=== PATIENT | male | born 1960 | race African-American/Black ===

== ENCOUNTER 2017-07-23 11:00 | Inpatient (IN) | payer OTHER ==
[2017-07-23 12:28] VITALS: BMI 22.4
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
[2017-07-23] MEDS ORDERED: P-EPHED 60MG/TRIPROLIDI 2.5MG TABLET PO PRN (14:54)
[2017-07-23] MEDS ORDERED: MAG HYDROX/AL HYDROX/SIMETH 30 ML UNIT-DOSE CUP PO PRN (14:54)
[2017-07-23] MEDS ORDERED: guaiFENesin/D-METHORPHAN HB 10 ML UNIT-DOSE CUPS PO PRN (14:54)
[2017-07-23] MEDS ORDERED: ACETAMINOPHEN 325 MG TABLET (FP) PO PRN (14:54)
[2017-07-23] MEDS ORDERED: MAGNESIUM CITRATE 300 ML BOTTLE PO PRN (14:54)
[2017-07-23] MEDS ORDERED: IBUPROFEN 400 MG TABLET (FP) PO PRN (14:54)
[2017-07-23] MEDS ORDERED: LOPERAMIDE HCL 2 MG CAPSULE PO PRN (14:54)
[2017-07-23] MEDS ORDERED: MAGNESIUM HYDROX 2400MG/30ML ORAL SUSPENSION 30 ML CUP PO PRN (14:54)
[2017-07-23] MEDS ORDERED: MENTHOL/PHENOL 1 EACH UD MM PRN (14:54)
[2017-07-23] MEDS ORDERED: hydrOXYzine PAMOATE 50 MG CAPSULE (FP) PO PRN (14:54)
[2017-07-23] MEDS ORDERED: METHADONE HCL 10 MG TABLET (FOR DETOX USE ONLY) PO ONE ×2 (15:30→23:00)
[2017-07-23] MEDS: diazePAM 5 MG TABLET PO PRN (15:56)
[2017-07-23] MEDS ORDERED: COLLOIDAL OATMEAL 1 BAR EACH TP PRN (16:49)
[2017-07-23 18:31] LABS: MCH 23.4 pg (25.7-33.7); MEAN CELL VOLUME 73.3 fl (80-96); MEAN PLT VOLUME 8.2 fl (7.5-11.1); PLATELET COUNT 197 K/MM3 (134-434); RDW 15.4 % (11.9-15.9); WHITE BLOOD COUNT 5.6 K/mm3 (4.0-10.0)
[2017-07-23 19:05] LABS: ALK PHOS 79 U/L (45-117); ANION GAP 8 (8-16); BILIRUBIN,TOTAL 0.5 mg/dL (0.2-1.0); CALCIUM 9.1 mg/dL (8.5-10.1); CO2 29 mmol/L (21-32); CREATININE 1.1 mg/dL (0.7-1.3); GLUCOSE,RANDOM 94 mg/dL (74-106); SGOT/AST 20 U/L (15-37); SGPT/ALT 25 U/L (12-78)
[2017-07-23] MEDS: THIAMINE HCL 100 MG TABLET (FP) PO SCH (22:45)
[2017-07-23] MEDS: diphenhydrAMINE HCL 50 MG CAPSULE PO PRN (22:46)
[2017-07-23 23:28] LABS: URINE APPEARANCE CLEAR; URINE BILIRUBIN NEGATIVE (NEGATIVE); URINE BLOOD NEGATIVE (NEGATIVE); URINE COLOR LT. YELLOW; URINE GLUCOSE (UA) NEGATIVE (NEGATIVE); URINE KETONE NEGATIVE (NEGATIVE); URINE NITRITE NEGATIVE (NEGATIVE); URINE PROTEIN NEGATIVE (NEGATIVE); URINE UROBILINOGEN 0.2 mg/dL (0.2-1.0)
[2017-07-24] MEDS ORDERED: METHADONE HCL 10 MG TABLET (FOR DETOX USE ONLY) PO ONE (10:00)
[2017-07-24] MEDS: PRENATAL VITAMINS W/ FOLIC ACID TABLET (FP) PO SCH (10:42)
[2017-07-24] MEDS: NICOTINE 21 MG/24 HOURS TOPICAL PATCH TD SCH (10:43)
[2017-07-24 12:37] LABS: HIV 1 & 2 AB NEGATIVE; HIV 1 AGp24 NEGATIVE
--- NOTE | 2017-07-24 13:12 | EKG ---
Test Reason : Blood Pressure : / mmHG Vent. Rate : 064 BPM Atrial Rate : 064 BPM P-R Int : 200 ms QRS Dur : 092 ms QT Int : 398 ms P-R-T Axes : 080 073 065 degrees QTc Int : 410 ms NORMAL SINUS RHYTHM BASELINE ARTIFACTS INCOMPLETE RBBB ATRIAL ABNORMALITY NO PREVIOUS ECGS AVAILABLE REPEAT EKG IF CLINICALLY INDICATED Confirmed by ADRIAN ZULETA MD ([id number]) on 07/24/2017 1:12:00 PM Referred By: Confirmed By:ADRIAN ZULETA MD
--- NOTE | 2017-07-24 13:36 | PN ---
BHS COWS - Scale Resting Pulse: 0= [place] 80 or Below Sweatin= Chills/Flushing Restless Observation: 1= Difficult to Sit Still Pupil Size: 0= Normal to Room Light Bone or Joint Aches: 2= Severe Diffuse Aches Runny Nose/ Eye Tearin= Runny Nose/Eyes GI Upset > 30mins: 1= Stomach Cramp Tremor Observation of Outstretched Hands: 2= Slight Tremor Visible Yawning Observation: 1= 1-2x During Session Anxiety or Irritability: 2=Irritable/Anxious Goose Flesh Skin: 3=Piloerection COWS Score: 15 BHS Progress Note (SOAP) Subjective: Tremors, Fatigue, Body Aches. Objective: PT. A & O X 2 9DISORIENTED ABOUT DAY /DATE). NO ACUTE DISTRESS. 07/24/17 13:33 Vital Signs Temperature 98.6 F 07/24/17 09:26 Pulse Rate 62 07/24/17 09:26 Respiratory Rate 18 07/24/17 09:26 Blood Pressure 146/90 07/24/17 09:26 O2 Sat by Pulse Oximetry (%) Laboratory Tests 07/23/17 07/23/17 07/23/17 14:00 14:00 14:00 WBC 5.6 RBC 5.16 Hgb 12.1 Hct 37.8 MCV 73.3 L MCH 23.4 L MCHC 32.0 RDW 15.4 Plt Count 197 MPV 8.2 Sodium 141 Potassium 4.2 Chloride 104 Carbon Dioxide 29 Anion Gap 8 BUN 10 Creatinine 1.1 Creat Clearance w eGFR > 60 Random Glucose 94 Calcium 9.1 Total Bilirubin 0.5 AST 20 ALT 25 Alkaline Phosphatase 79 Total Protein 7.0 Albumin 4.0 Urine Color Urine Appearance Urine pH Urine Protein Urine Glucose (UA) Urine Ketones Urine Blood Urine Nitrite Urine Bilirubin Urine Urobilinogen RPR Titer HIV 1&2 Antibody Screen Negative HIV P24 Antigen Negative 07/23/17 07/23/17 14:00 18:30 WBC RBC Hgb Hct MCV MCH MCHC RDW Plt Count MPV Sodium Potassium Chloride Carbon Dioxide Anion Gap BUN Creatinine Creat Clearance w eGFR Random Glucose Calcium Total Bilirubin AST ALT Alkaline Phosphatase Total Protein Albumin Urine Color Lt. yellow Urine Appearance Clear Urine pH 6.0 Urine Protein Negative Urine Glucose (UA) Negative Urine Ketones Negative Urine Blood Negative Urine Nitrite Negative Urine Bilirubin Negative Urine Urobilinogen 0.2 RPR Titer Nonreactive HIV 1&2 Antibody Screen HIV P24 Antigen LABS NOTED. Assessment: 07/24/17 13:34 WITHDRAWAL SYMPTOMS. Plan: CONTINUE DETOX. CONTINUE TO MONITOR BP.
[2017-07-24] MEDS: THIAMINE HCL 100 MG TABLET (FP) PO SCH (22:47)
[2017-07-24] MEDS: diphenhydrAMINE HCL 50 MG CAPSULE PO PRN (22:47)
[2017-07-25] MEDS: diazePAM 5 MG TABLET PO PRN (06:19)
[2017-07-25] MEDS ORDERED: METHADONE HCL 5 MG TABLET (FOR DETOX USE ONLY) PO ONE (10:00)
[2017-07-25] MEDS: NICOTINE 21 MG/24 HOURS TOPICAL PATCH TD SCH (11:19)
[2017-07-25] MEDS: PRENATAL VITAMINS W/ FOLIC ACID TABLET (FP) PO SCH (11:19)
--- NOTE | 2017-07-25 13:45 | PN ---
S COWS - Scale Resting Pulse: 0= [place] 80 or Below Sweatin= Chills/Flushing Restless Observation: 0= Sits Still Pupil Size: 0= Normal to Room Light Bone or Joint Aches: 2= Severe Diffuse Aches Runny Nose/ Eye Tearin= Runny Nose/Eyes GI Upset > 30mins: 1= Stomach Cramp Tremor Observation of Outstretched Hands: 2= Slight Tremor Visible Yawning Observation: 2= >3x During Session Anxiety or Irritability: 2=Irritable/Anxious Goose Flesh Skin: 0=Smooth Skin COWS Score: 12 S Progress Note (SOAP) Subjective: Nausea, Stomach Cramping, H/A, Body Aches, Sweating, Fatigue. Objective: PT. A & O X 2 (DISORIENTED ABOUT DAY / DATE). NO ACUTE DISTRESS. 07/25/17 13:43 Vital Signs Temperature 97.8 F 07/25/17 09:55 Pulse Rate 60 07/25/17 09:55 Respiratory Rate 18 07/25/17 09:55 Blood Pressure 126/84 07/25/17 09:55 O2 Sat by Pulse Oximetry (%) Laboratory Tests 07/23/17 07/23/17 07/23/17 14:00 14:00 14:00 WBC 5.6 RBC 5.16 Hgb 12.1 Hct 37.8 MCV 73.3 L MCH 23.4 L MCHC 32.0 RDW 15.4 Plt Count 197 MPV 8.2 Sodium 141 Potassium 4.2 Chloride 104 Carbon Dioxide 29 Anion Gap 8 BUN 10 Creatinine 1.1 Creat Clearance w eGFR > 60 Random Glucose 94 Calcium 9.1 Total Bilirubin 0.5 AST 20 ALT 25 Alkaline Phosphatase 79 Total Protein 7.0 Albumin 4.0 Urine Color Urine Appearance Urine pH Ur Specific [place] Urine Protein Urine Glucose (UA) Urine Ketones Urine Blood Urine Nitrite Urine Bilirubin Urine Urobilinogen RPR Titer HIV 1&2 Antibody Screen Negative HIV P24 Antigen Negative 07/23/17 07/23/17 14:00 18:30 WBC RBC Hgb Hct MCV MCH MCHC RDW Plt Count MPV Sodium Potassium Chloride Carbon Dioxide Anion Gap BUN Creatinine Creat Clearance w eGFR Random Glucose Calcium Total Bilirubin AST ALT Alkaline Phosphatase Total Protein Albumin Urine Color Lt. yellow Urine Appearance Clear Urine pH 6.0 Ur Specific [place] 1.020 Urine Protein Negative Urine Glucose (UA) Negative Urine Ketones Negative Urine Blood Negative Urine Nitrite Negative Urine Bilirubin Negative Urine Urobilinogen 0.2 RPR Titer Nonreactive HIV 1&2 Antibody Screen HIV P24 Antigen LABS NOTED. Assessment: 07/25/17 13:44 WITHDRAWAL SYMPTOMS. Plan: CONTINUE DETOX.
[2017-07-25] MEDS: diphenhydrAMINE HCL 50 MG CAPSULE PO PRN (22:36)
[2017-07-25] MEDS: THIAMINE HCL 100 MG TABLET (FP) PO SCH (22:51)
[2017-07-26] MEDS ORDERED: METHADONE HCL 5 MG TABLET (FOR DETOX USE ONLY) PO ONE (10:00)
[2017-07-26] MEDS: PRENATAL VITAMINS W/ FOLIC ACID TABLET (FP) PO SCH (10:35)
[2017-07-26] MEDS: NICOTINE 21 MG/24 HOURS TOPICAL PATCH TD SCH (10:36)
--- NOTE | 2017-07-26 14:02 | PN ---
BHS Progress Note (SOAP) Subjective: Body Aches, Stomach Cramping, Fatigue. Objective: PT. A & O X 3. NO ACUTE DISTRESS. 07/26/17 14:00 Vital Signs Temperature 97.8 F 07/26/17 10:27 Pulse Rate 63 07/26/17 10:27 Respiratory Rate 20 07/26/17 10:27 Blood Pressure 132/91 07/26/17 10:27 O2 Sat by Pulse Oximetry (%) Laboratory Tests 07/23/17 07/23/17 07/23/17 14:00 14:00 14:00 WBC 5.6 RBC 5.16 Hgb 12.1 Hct 37.8 MCV 73.3 L MCH 23.4 L MCHC 32.0 RDW 15.4 Plt Count 197 MPV 8.2 Sodium 141 Potassium 4.2 Chloride 104 Carbon Dioxide 29 Anion Gap 8 BUN 10 Creatinine 1.1 Creat Clearance w eGFR > 60 Random Glucose 94 Calcium 9.1 Total Bilirubin 0.5 AST 20 ALT 25 Alkaline Phosphatase 79 Total Protein 7.0 Albumin 4.0 Urine Color Urine Appearance Urine pH Ur Specific [place] Urine Protein Urine Glucose (UA) Urine Ketones Urine Blood Urine Nitrite Urine Bilirubin Urine Urobilinogen RPR Titer HIV 1&2 Antibody Screen Negative HIV P24 Antigen Negative 07/23/17 07/23/17 14:00 18:30 WBC RBC Hgb Hct MCV MCH MCHC RDW Plt Count MPV Sodium Potassium Chloride Carbon Dioxide Anion Gap BUN Creatinine Creat Clearance w eGFR Random Glucose Calcium Total Bilirubin AST ALT Alkaline Phosphatase Total Protein Albumin Urine Color Lt. yellow Urine Appearance Clear Urine pH 6.0 Ur Specific [place] 1.020 Urine Protein Negative Urine Glucose (UA) Negative Urine Ketones Negative Urine Blood Negative Urine Nitrite Negative Urine Bilirubin Negative Urine Urobilinogen 0.2 RPR Titer Nonreactive HIV 1&2 Antibody Screen HIV P24 Antigen LABS NOTED. Assessment: 07/26/17 14:01 WITHDRAWAL SYMPTOMS. Plan: CONTINUE DETOX.
[2017-07-26] MEDS: THIAMINE HCL 100 MG TABLET (FP) PO SCH (22:59)
[2017-07-26] MEDS: diphenhydrAMINE HCL 50 MG CAPSULE PO PRN (22:59)
[2017-07-27] MEDS ORDERED: METHADONE HCL 10 MG TABLET (FOR DETOX USE ONLY) PO ONE (10:00)
[2017-07-27] MEDS: NICOTINE 21 MG/24 HOURS TOPICAL PATCH TD SCH (10:32)
[2017-07-27] MEDS: PRENATAL VITAMINS W/ FOLIC ACID TABLET (FP) PO SCH (10:32)
--- NOTE | 2017-07-27 13:17 | PN ---
BHS Progress Note (SOAP) Subjective: Interrupted sleep, Diarrhea, Stomach cramping, Body Aches, Anxious, Tremors. Pt. reporting injury to right hand due to a fall that occurred just prior admission to Detox. Pt. reports that he did not go to ER for medical evaluation after fall. Objective: PT. A & O X 3, OBSERVED AMBULATING ON UNIT. NO ACUTE DISTRESS. 07/27/17 13:13 Vital Signs Temperature 98.7 F 07/27/17 11:24 Pulse Rate 70 07/27/17 11:24 Respiratory Rate 18 07/27/17 11:24 Blood Pressure 142/99 07/27/17 11:24 O2 Sat by Pulse Oximetry (%) Laboratory Tests 07/23/17 07/23/17 07/23/17 14:00 14:00 14:00 WBC 5.6 RBC 5.16 Hgb 12.1 Hct 37.8 MCV 73.3 L MCH 23.4 L MCHC 32.0 RDW 15.4 Plt Count 197 MPV 8.2 Sodium 141 Potassium 4.2 Chloride 104 Carbon Dioxide 29 Anion Gap 8 BUN 10 Creatinine 1.1 Creat Clearance w eGFR > 60 Random Glucose 94 Calcium 9.1 Total Bilirubin 0.5 AST 20 ALT 25 Alkaline Phosphatase 79 Total Protein 7.0 Albumin 4.0 Urine Color Urine Appearance Urine pH Ur Specific [place] Urine Protein Urine Glucose (UA) Urine Ketones Urine Blood Urine Nitrite Urine Bilirubin Urine Urobilinogen RPR Titer HIV 1&2 Antibody Screen Negative HIV P24 Antigen Negative 07/23/17 07/23/17 14:00 18:30 WBC RBC Hgb Hct MCV MCH MCHC RDW Plt Count MPV Sodium Potassium Chloride Carbon Dioxide Anion Gap BUN Creatinine Creat Clearance w eGFR Random Glucose Calcium Total Bilirubin AST ALT Alkaline Phosphatase Total Protein Albumin Urine Color Lt. yellow Urine Appearance Clear Urine pH 6.0 Ur Specific [place] 1.020 Urine Protein Negative Urine Glucose (UA) Negative Urine Ketones Negative Urine Blood Negative Urine Nitrite Negative Urine Bilirubin Negative Urine Urobilinogen 0.2 RPR Titer Nonreactive HIV 1&2 Antibody Screen HIV P24 Antigen LABS NOTED. Assessment: 07/27/17 13:15 WITHDRAWAL SYMPTOMS. Plan: CONTINUE DETOX. X-RAY OF RIGHT HAND ORDERED.
[2017-07-27 22:22] VITALS: BP 120/89; PULSE 56; TEMP 97.5
[2017-07-27] MEDS: THIAMINE HCL 100 MG TABLET (FP) PO SCH (23:05)
[2017-07-28] MEDS ORDERED: METHADONE HCL 5 MG TABLET (FOR DETOX USE ONLY) PO ONE ×2 (06:00→09:30)
--- NOTE | 2017-07-28 21:04 | DS ---
[facility] Detox Discharge Summary Admission Date: 07/23/17 Discharge Date: 07/28/17 - History Present History: Cocaine Dependence, Opioid Dependence Additional Comments: PT. EXPRESSING INTEREST IN GOING TO [facility] FOR AFTERCARE. HOWEVER, NO BEDS AVAILABLE IN [facility] AT THIS TIME. PT. ADVISED TO CALL [facility] ADMISSIONS ON 07/30/2017 TO INQUIRE ABOUT BED AVAILABILITY AT THAT TIME. PT. ALSO ADVISED TO FOLLOW-UP WITH LOCAL OUTPATIENT 12-STEP / NA SUPPORT GROUP PROGRAM FOR AFTER CARE. PATIENT ALSO ADVISED TO FOLLOW-UP WITH [employer]ET NEWS REPORTER AT [facility] ([facility]) FOR MEDICAL ASSESSMENT AND FOR HISTORY OF INJURY/FRACTURE OF METACARPAL BONE OF RIGHT HAND. PATIENT WAS DISCHARGED FROM DETOX UNIT IN STABLE MEDICAL CONDITION. Pertinent Past History: Nicotine dependence, Fracture of Metacarpal Bone of Right Hand. - Physical Exam Results Vital Signs: Vital Signs Temperature 97.5 F L 07/27/17 22:21 Pulse Rate 56 L 07/27/17 22:21 Respiratory Rate 18 07/28/17 03:47 Blood Pressure 120/89 07/27/17 22:21 O2 Sat by Pulse Oximetry (%) Pertinent Admission Physical Exam Findings: WITHDRAWAL SYMPTOMS. Laboratory Tests 07/23/17 07/23/17 07/23/17 14:00 14:00 14:00 WBC 5.6 RBC 5.16 Hgb 12.1 Hct 37.8 MCV 73.3 L MCH 23.4 L MCHC 32.0 RDW 15.4 Plt Count 197 MPV 8.2 Sodium 141 Potassium 4.2 Chloride 104 Carbon Dioxide 29 Anion Gap 8 BUN 10 Creatinine 1.1 Creat Clearance w eGFR > 60 Random Glucose 94 Calcium 9.1 Total Bilirubin 0.5 AST 20 ALT 25 Alkaline Phosphatase 79 Total Protein 7.0 Albumin 4.0 Urine Color Urine Appearance Urine pH Ur Specific [place] Urine Protein Urine Glucose (UA) Urine Ketones Urine Blood Urine Nitrite Urine Bilirubin Urine Urobilinogen RPR Titer HIV 1&2 Antibody Screen Negative HIV P24 Antigen Negative 07/23/17 07/23/17 14:00 18:30 WBC RBC Hgb Hct MCV MCH MCHC RDW Plt Count MPV Sodium Potassium Chloride Carbon Dioxide Anion Gap BUN Creatinine Creat Clearance w eGFR Random Glucose Calcium Total Bilirubin AST ALT Alkaline Phosphatase Total Protein Albumin Urine Color Lt. yellow Urine Appearance Clear Urine pH 6.0 Ur Specific [place] 1.020 Urine Protein Negative Urine Glucose (UA) Negative Urine Ketones Negative Urine Blood Negative Urine Nitrite Negative Urine Bilirubin Negative Urine Urobilinogen 0.2 RPR Titer Nonreactive HIV 1&2 Antibody Screen HIV P24 Antigen LABS NOTED. - Treatment Hospital Course: Detox Protocol Followed, Detoxed Safely, Responded well, Discharged Condition Good, Rehab Referral Accepted Patient has Accepted a Rehab Referral to: [facility]. - Medication Discharge Medications: Ambulatory Orders NK [No Known Home Medication] 07/23/17 - Diagnosis (1) Fracture of metacarpal Status: Acute Qualifiers: Encounter type: initial encounter Metacarpal bone: fifth Fracture type: closed Metacarpal location: base Fracture alignment: nondisplaced Laterality: right Qualified Code(s): S62.346A - Nondisplaced fracture of base of fifth metacarpal bone, right hand, initial encounter for closed fracture (2) Cocaine dependence, uncomplicated Status: Chronic (3) Nicotine dependence Status: Chronic Qualifiers: Nicotine product type: cigarettes Substance use status: uncomplicated Qualified Code(s): F17.210 - Nicotine dependence, cigarettes, uncomplicated (4) Opioid dependence with withdrawal Status: Acute - AMA Did Patient Leave Against Medical Advice: No
== END 2017-07-28 09:45 | disposition home or self-care (01) | DRG 773 ==
LOC: YASAS 11:00 → Y3N 14:12
PROVIDERS: ADMIT Internal Medicine; ATTEND Internal Medicine
PROC: HZ2ZZZZ Detoxification Services for Substance Abuse Treatment (ICD-10-PCS; principal; 2017-07-23)
DX: F11.23 Opioid dependence with withdrawal (principal); F14.20 Cocaine dependence, uncomplicated; F17.210 Nicotine dependence, cigarettes, uncomplicated; S62.346A Nondisplaced fracture of base of fifth metacarpal bone, right hand, initial encounter for closed fracture; X58.XXXA Exposure to other specified factors, initial encounter; Y93.89 Activity, other specified; Y92.89 Other specified places as the place of occurrence of the external cause; Y99.8 Other external cause status
CPT/HCPCS: 36415; 71020-TC; 80053; 81003; 85027; 86593; 87389; 93005; 93010

== ENCOUNTER 2017-07-27 16:27 | Emergency (ER) | payer OTHER ==
[2017-07-27 16:38] VITALS: BP 123/96; PULSE 60; TEMP 98.2; BMI 22.8
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
== END 2017-07-27 19:20 | disposition other institution (70) ==
LOC: JER 16:27
PROC: 2W3CX1Z Immobilization of Right Lower Arm using Splint (ICD-10-PCS; principal; 2017-07-27)
DX: S62.346A Nondisplaced fracture of base of fifth metacarpal bone, right hand, initial encounter for closed fracture (principal); W19.XXXA Unspecified fall, initial encounter; Y93.89 Activity, other specified; Y92.89 Other specified places as the place of occurrence of the external cause; Y99.8 Other external cause status
CPT/HCPCS: 29125; 73130-TC-RT; 99281-25

== ENCOUNTER 2017-08-26 12:13 | Inpatient (IN) | payer OTHER ==
[2017-08-26 12:56] VITALS: BMI 22.8
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
[2017-08-26] MEDS ORDERED: MAGNESIUM CITRATE 300 ML BOTTLE PO PRN (15:26)
[2017-08-26] MEDS ORDERED: MAG HYDROX/AL HYDROX/SIMETH 30 ML UNIT-DOSE CUP PO PRN (15:26)
[2017-08-26] MEDS ORDERED: hydrOXYzine PAMOATE 50 MG CAPSULE (FP) PO PRN (15:26)
[2017-08-26] MEDS ORDERED: METHADONE HCL 10 MG TABLET (FOR DETOX USE ONLY) PO ONE ×2 (15:26→23:00)
[2017-08-26] MEDS ORDERED: guaiFENesin/D-METHORPHAN HB 10 ML UNIT-DOSE CUPS PO PRN (15:26)
[2017-08-26] MEDS ORDERED: P-EPHED 60MG/TRIPROLIDI 2.5MG TABLET PO PRN (15:26)
[2017-08-26] MEDS ORDERED: MENTHOL/PHENOL 1 EACH UD MM PRN (15:26)
[2017-08-26] MEDS ORDERED: ACETAMINOPHEN 325 MG TABLET (FP) PO PRN (15:26)
[2017-08-26] MEDS ORDERED: IBUPROFEN 400 MG TABLET (FP) PO PRN ×2 (15:26→15:35)
[2017-08-26] MEDS ORDERED: MAGNESIUM HYDROX 2400MG/30ML ORAL SUSPENSION 30 ML CUP PO PRN (15:26)
[2017-08-26] MEDS ORDERED: LOPERAMIDE HCL 2 MG CAPSULE PO PRN (15:26)
[2017-08-26 17:38] LABS: URINE APPEARANCE CLEAR; URINE BILIRUBIN NEGATIVE (NEGATIVE); URINE BLOOD NEGATIVE (NEGATIVE); URINE COLOR LTYELLOW; URINE GLUCOSE (UA) NEGATIVE (NEGATIVE); URINE KETONE NEGATIVE (NEGATIVE); URINE NITRITE NEGATIVE (NEGATIVE); URINE PROTEIN NEGATIVE (NEGATIVE); URINE UROBILINOGEN NEGATIVE mg/dL (0.2-1.0)
[2017-08-26] MEDS ORDERED: METHADONE HCL 10 MG TABLET (FOR DETOX USE ONLY) ONE (17:40)
[2017-08-26] MEDS: diazePAM 5 MG TABLET PO PRN ×2 (17:46→22:10)
[2017-08-26 20:18] LABS: URINE LEUK ESTERASE Negative (NEGATIVE)
[2017-08-26] MEDS: THIAMINE HCL 100 MG TABLET (FP) PO SCH (22:10)
[2017-08-26] MEDS: diphenhydrAMINE HCL 50 MG CAPSULE PO PRN (22:11)
[2017-08-27 09:47] LABS: MCH 22.6 pg (25.7-33.7); MEAN PLT VOLUME 8.3 fl (7.5-11.1); PLATELET COUNT 185 K/MM3 (134-434); RDW 15.3 % (11.9-15.9); WHITE BLOOD COUNT 4.8 K/mm3 (4.0-10.0)
[2017-08-27] MEDS ORDERED: METHADONE HCL 10 MG TABLET (FOR DETOX USE ONLY) PO ONE (10:00)
[2017-08-27 10:05] LABS: ALBUMIN 3.3 g/dl (3.4-5.0); ALK PHOS 78 U/L (45-117); ANION GAP 7 (8-16); BILIRUBIN,TOTAL 0.3 mg/dL (0.2-1.0); CO2 29 mmol/L (21-32); GLUCOSE,RANDOM 115 mg/dL (74-106); SGOT/AST 16 U/L (15-37); SGPT/ALT 19 U/L (12-78); TOT PROT 6.4 g/dl (6.4-8.2)
[2017-08-27] MEDS: PRENATAL VITAMINS W/ FOLIC ACID TABLET (FP) PO SCH (10:08)
[2017-08-27] MEDS: NICOTINE 21 MG/24 HOURS TOPICAL PATCH TD SCH (10:08)
[2017-08-27 10:42] LABS: HIV 1 & 2 AB NEGATIVE; HIV 1 AGp24 NEGATIVE
--- NOTE | 2017-08-27 11:35 | PN ---
S COWS - Scale Resting Pulse: 0= [place] 80 or Below Sweatin= Chills/Flushing Restless Observation: 1= Difficult to Sit Still Pupil Size: 0= Normal to Room Light Bone or Joint Aches: 2= Severe Diffuse Aches Runny Nose/ Eye Tearin= Nasal Congestion GI Upset > 30mins: 1= Stomach Cramp Tremor Observation of Outstretched Hands: 2= Slight Tremor Visible Yawning Observation: 1= 1-2x During Session Anxiety or Irritability: 2=Irritable/Anxious Goose Flesh Skin: 3=Piloerection COWS Score: 14 S Progress Note (SOAP) Subjective: Body Aches, Sweating, Tremors. Objective: PT. A & O X 3, OBSERVED AMBULATING ON UNIT. NO ACUTE DISTRESS. PT. DENIES CHEST PAIN. 08/27/17 11:36 Vital Signs Temperature 97.0 F L 08/27/17 09:44 Pulse Rate 61 08/27/17 09:44 Respiratory Rate 20 08/27/17 09:44 Blood Pressure 148/92 08/27/17 09:44 O2 Sat by Pulse Oximetry (%) Laboratory Tests 08/26/17 08/27/17 08/27/17 17:19 07:00 07:00 WBC 4.8 RBC 5.49 Hgb 12.4 Hct 40.1 MCV 73.0 L MCH 22.6 L MCHC 31.0 L RDW 15.3 Plt Count 185 MPV 8.3 Sodium Potassium Chloride Carbon Dioxide Anion Gap BUN Creatinine Creat Clearance w eGFR Random Glucose Calcium Total Bilirubin AST ALT Alkaline Phosphatase Total Protein Albumin Urine Color Ltyellow Urine Appearance Clear Urine pH 8.0 D Ur Specific [place] 1.015 Urine Protein Negative Urine Glucose (UA) Negative Urine Ketones Negative Urine Blood Negative Urine Nitrite Negative Urine Bilirubin Negative Urine Urobilinogen Negative Ur Leukocyte Esterase Negative RPR Titer HIV 1&2 Antibody Screen Negative HIV P24 Antigen Negative 08/27/17 08/27/17 07:00 07:00 WBC RBC Hgb Hct MCV MCH MCHC RDW Plt Count MPV Sodium 141 Potassium 4.3 Chloride 105 Carbon Dioxide 29 Anion Gap 7 L BUN 11 Creatinine 1.0 Creat Clearance w eGFR > 60 Random Glucose 115 H D Calcium 9.0 Total Bilirubin 0.3 D AST 16 ALT 19 D Alkaline Phosphatase 78 Total Protein 6.4 Albumin 3.3 L Urine Color Urine Appearance Urine pH Ur Specific [place] Urine Protein Urine Glucose (UA) Urine Ketones Urine Blood Urine Nitrite Urine Bilirubin Urine Urobilinogen Ur Leukocyte Esterase RPR Titer Nonreactive HIV 1&2 Antibody Screen HIV P24 Antigen LABS NOTED. Assessment: 08/27/17 11:37 WITHDRAWAL SYMPTOMS. Plan: CONTINUE DETOX.
[2017-08-27] MEDS ORDERED: FLU VACCINE QUAD 60 MCG/0.5 ML (MDV 17-18) IM ONE (12:00)
[2017-08-27] MEDS: THIAMINE HCL 100 MG TABLET (FP) PO SCH (22:04)
[2017-08-27] MEDS: diazePAM 5 MG TABLET PO PRN (22:05)
[2017-08-27] MEDS: diphenhydrAMINE HCL 50 MG CAPSULE PO PRN (22:05)
--- NOTE | 2017-08-28 07:23 | EKG ---
Test Reason : Blood Pressure : / mmHG Vent. Rate : 053 BPM Atrial Rate : 053 BPM P-R Int : 204 ms QRS Dur : 098 ms QT Int : 400 ms P-R-T Axes : 081 069 065 degrees QTc Int : 375 ms SINUS BRADYCARDIA INCOMPLETE RIGHT BUNDLE BRANCH BLOCK BORDERLINE ECG WHEN COMPARED WITH ECG OF 23-JUL-2017 15:52, NO SIGNIFICANT CHANGE WAS FOUND Confirmed by EDISON WILKINSON MD ([id number]) on 08/28/2017 7:22:43 AM Referred By: Confirmed By:EDISON WILKINSON MD
[2017-08-28] MEDS ORDERED: METHADONE HCL 5 MG TABLET (FOR DETOX USE ONLY) PO ONE (10:00)
[2017-08-28] MEDS: PRENATAL VITAMINS W/ FOLIC ACID TABLET (FP) PO SCH (10:09)
[2017-08-28] MEDS: NICOTINE 21 MG/24 HOURS TOPICAL PATCH TD SCH (10:10)
[2017-08-28] MEDS: diazePAM 5 MG TABLET PO PRN ×2 (10:10→22:12)
--- NOTE | 2017-08-28 12:25 | PN ---
BHS COWS - Scale Resting Pulse: 0= [place] 80 or Below Sweatin= Chills/Flushing Restless Observation: 1= Difficult to Sit Still Pupil Size: 0= Normal to Room Light Bone or Joint Aches: 2= Severe Diffuse Aches Runny Nose/ Eye Tearin= Nasal Congestion GI Upset > 30mins: 1= Stomach Cramp Tremor Observation of Outstretched Hands: 2= Slight Tremor Visible Yawning Observation: 2= >3x During Session Anxiety or Irritability: 1=Feels Anxious/Irritable Goose Flesh Skin: 3=Piloerection COWS Score: 14 BHS Progress Note (SOAP) Subjective: Tremors,m Stomach Cramping, Fatigue, Body Aches. Objective: PT. A & O X 3, OBSERVED AMBULATING ON UNIT. NO ACUTE DISTRESS. 08/28/17 12:25 Vital Signs Temperature 98.7 F 08/28/17 09:40 Pulse Rate 67 08/28/17 09:40 Respiratory Rate 18 08/28/17 09:40 Blood Pressure 139/89 08/28/17 09:40 O2 Sat by Pulse Oximetry (%) Laboratory Tests 08/26/17 08/27/17 08/27/17 17:19 07:00 07:00 WBC 4.8 RBC 5.49 Hgb 12.4 Hct 40.1 MCV 73.0 L MCH 22.6 L MCHC 31.0 L RDW 15.3 Plt Count 185 MPV 8.3 Sodium Potassium Chloride Carbon Dioxide Anion Gap BUN Creatinine Creat Clearance w eGFR Random Glucose Calcium Total Bilirubin AST ALT Alkaline Phosphatase Total Protein Albumin Urine Color Ltyellow Urine Appearance Clear Urine pH 8.0 D Ur Specific [place] 1.015 Urine Protein Negative Urine Glucose (UA) Negative Urine Ketones Negative Urine Blood Negative Urine Nitrite Negative Urine Bilirubin Negative Urine Urobilinogen Negative Ur Leukocyte Esterase Negative RPR Titer HIV 1&2 Antibody Screen Negative HIV P24 Antigen Negative 08/27/17 08/27/17 07:00 07:00 WBC RBC Hgb Hct MCV MCH MCHC RDW Plt Count MPV Sodium 141 Potassium 4.3 Chloride 105 Carbon Dioxide 29 Anion Gap 7 L BUN 11 Creatinine 1.0 Creat Clearance w eGFR > 60 Random Glucose 115 H D Calcium 9.0 Total Bilirubin 0.3 D AST 16 ALT 19 D Alkaline Phosphatase 78 Total Protein 6.4 Albumin 3.3 L Urine Color Urine Appearance Urine pH Ur Specific [place] Urine Protein Urine Glucose (UA) Urine Ketones Urine Blood Urine Nitrite Urine Bilirubin Urine Urobilinogen Ur Leukocyte Esterase RPR Titer Nonreactive HIV 1&2 Antibody Screen HIV P24 Antigen LABS NOTED. Assessment: 08/28/17 12:26 WITHDRAWAL SYMPTOMS. Plan: CONTINUE DETOX.
[2017-08-28] MEDS: diphenhydrAMINE HCL 50 MG CAPSULE PO PRN (22:12)
[2017-08-28] MEDS: THIAMINE HCL 100 MG TABLET (FP) PO SCH (22:12)
[2017-08-29] MEDS ORDERED: METHADONE HCL 5 MG TABLET (FOR DETOX USE ONLY) PO ONE (10:00)
[2017-08-29] MEDS: diazePAM 5 MG TABLET PO PRN (10:07)
[2017-08-29] MEDS: PRENATAL VITAMINS W/ FOLIC ACID TABLET (FP) PO SCH (10:07)
[2017-08-29] MEDS: NICOTINE 21 MG/24 HOURS TOPICAL PATCH TD SCH (10:08)
[2017-08-29] MEDS: IBUPROFEN 600 MG TABLET (FP) PO PRN (13:28)
--- NOTE | 2017-08-29 13:38 | PN ---
BHS Progress Note (SOAP) Subjective: Sweating, Body Aches, Fatigue. Objective: PT. A & O X 2 (DISORIENTED ABOUT DAY/ DATE). PT. OBSERVED AMBULATING ON UNIT. NO ACUTE DISTRESS. 08/29/17 13:37 Vital Signs Temperature 98.1 F 08/29/17 13:07 Pulse Rate 71 08/29/17 13:07 Respiratory Rate 18 08/29/17 13:07 Blood Pressure 134/90 08/29/17 13:07 O2 Sat by Pulse Oximetry (%) Laboratory Tests 08/26/17 08/27/17 08/27/17 17:19 07:00 07:00 WBC 4.8 RBC 5.49 Hgb 12.4 Hct 40.1 MCV 73.0 L MCH 22.6 L MCHC 31.0 L RDW 15.3 Plt Count 185 MPV 8.3 Sodium Potassium Chloride Carbon Dioxide Anion Gap BUN Creatinine Creat Clearance w eGFR Random Glucose Calcium Total Bilirubin AST ALT Alkaline Phosphatase Total Protein Albumin Urine Color Ltyellow Urine Appearance Clear Urine pH 8.0 D Ur Specific [place] 1.015 Urine Protein Negative Urine Glucose (UA) Negative Urine Ketones Negative Urine Blood Negative Urine Nitrite Negative Urine Bilirubin Negative Urine Urobilinogen Negative Ur Leukocyte Esterase Negative RPR Titer HIV 1&2 Antibody Screen Negative HIV P24 Antigen Negative 08/27/17 08/27/17 07:00 07:00 WBC RBC Hgb Hct MCV MCH MCHC RDW Plt Count MPV Sodium 141 Potassium 4.3 Chloride 105 Carbon Dioxide 29 Anion Gap 7 L BUN 11 Creatinine 1.0 Creat Clearance w eGFR > 60 Random Glucose 115 H D Calcium 9.0 Total Bilirubin 0.3 D AST 16 ALT 19 D Alkaline Phosphatase 78 Total Protein 6.4 Albumin 3.3 L Urine Color Urine Appearance Urine pH Ur Specific [place] Urine Protein Urine Glucose (UA) Urine Ketones Urine Blood Urine Nitrite Urine Bilirubin Urine Urobilinogen Ur Leukocyte Esterase RPR Titer Nonreactive HIV 1&2 Antibody Screen HIV P24 Antigen LABS NOTED. Assessment: 08/29/17 13:38 WITHDRAWAL SYMPTOMS. Plan: CONTINUE DETOX.
[2017-08-29] MEDS: THIAMINE HCL 100 MG TABLET (FP) PO SCH (22:04)
[2017-08-29] MEDS: diphenhydrAMINE HCL 50 MG CAPSULE PO PRN (22:06)
[2017-08-30] MEDS ORDERED: METHADONE HCL 10 MG TABLET (FOR DETOX USE ONLY) PO ONE (10:00)
[2017-08-30] MEDS: PRENATAL VITAMINS W/ FOLIC ACID TABLET (FP) PO SCH (10:06)
[2017-08-30] MEDS: NICOTINE 21 MG/24 HOURS TOPICAL PATCH TD SCH (10:07)
--- NOTE | 2017-08-30 11:09 | PN ---
BHS Progress Note (SOAP) Subjective: Nausea, anxious, restless, sweating Objective: 08/30/17 11:08 Last Vital Signs Temp Pulse Resp BP Pulse Ox 98.2 F 65 18 142/91 08/30/17 09:55 08/30/17 09:55 08/30/17 09:55 08/30/17 09:55 Laboratory Tests 08/26/17 08/27/17 08/27/17 17:19 07:00 07:00 WBC 4.8 RBC 5.49 Hgb 12.4 Hct 40.1 MCV 73.0 L MCH 22.6 L MCHC 31.0 L RDW 15.3 Plt Count 185 MPV 8.3 Sodium Potassium Chloride Carbon Dioxide Anion Gap BUN Creatinine Creat Clearance w eGFR Random Glucose Calcium Total Bilirubin AST ALT Alkaline Phosphatase Total Protein Albumin Urine Color Ltyellow Urine Appearance Clear Urine pH 8.0 D Ur Specific [place] 1.015 Urine Protein Negative Urine Glucose (UA) Negative Urine Ketones Negative Urine Blood Negative Urine Nitrite Negative Urine Bilirubin Negative Urine Urobilinogen Negative Ur Leukocyte Esterase Negative RPR Titer HIV 1&2 Antibody Screen Negative HIV P24 Antigen Negative 08/27/17 08/27/17 07:00 07:00 WBC RBC Hgb Hct MCV MCH MCHC RDW Plt Count MPV Sodium 141 Potassium 4.3 Chloride 105 Carbon Dioxide 29 Anion Gap 7 L BUN 11 Creatinine 1.0 Creat Clearance w eGFR > 60 Random Glucose 115 H D Calcium 9.0 Total Bilirubin 0.3 D AST 16 ALT 19 D Alkaline Phosphatase 78 Total Protein 6.4 Albumin 3.3 L Urine Color Urine Appearance Urine pH Ur Specific [place] Urine Protein Urine Glucose (UA) Urine Ketones Urine Blood Urine Nitrite Urine Bilirubin Urine Urobilinogen Ur Leukocyte Esterase RPR Titer Nonreactive HIV 1&2 Antibody Screen HIV P24 Antigen Labs noted Assessment: 08/30/17 11:08 Withdrawal symptoms Plan: Continue detox
[2017-08-30] MEDS: IBUPROFEN 600 MG TABLET (FP) PO PRN (12:21)
[2017-08-30] MEDS: THIAMINE HCL 100 MG TABLET (FP) PO SCH (22:06)
[2017-08-30] MEDS: diphenhydrAMINE HCL 50 MG CAPSULE PO PRN (22:06)
[2017-08-31] MEDS ORDERED: METHADONE HCL 5 MG TABLET (FOR DETOX USE ONLY) PO ONE (06:00)
[2017-08-31 06:25] VITALS: BP 119/68; PULSE 55; TEMP 97.9
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
== END 2017-08-31 09:07 | disposition home or self-care (01) | DRG 773 ==
LOC: YASAS 12:13 → Y3N 15:38
PROVIDERS: ADMIT Internal Medicine; ATTEND Internal Medicine
PROC: HZ2ZZZZ Detoxification Services for Substance Abuse Treatment (ICD-10-PCS; principal; 2017-08-26)
DX: F11.23 Opioid dependence with withdrawal (principal); F14.20 Cocaine dependence, uncomplicated; F17.210 Nicotine dependence, cigarettes, uncomplicated; F32.9 Major depressive disorder, single episode, unspecified
CPT/HCPCS: 36415; 80053; 81003; 85027; 86593; 87389; 93005; 93010

== ENCOUNTER 2018-08-04 11:10 | Inpatient (IN) | payer OTHER ==
[2018-08-04 15:14] VITALS: BMI 22.9
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
[2018-08-04] MEDS ORDERED: MAG HYDROX/AL HYDROX/SIMETH 30 ML UNIT-DOSE CUP PO PRN (17:27)
[2018-08-04] MEDS ORDERED: MENTHOL/PHENOL 1 EACH UD MM PRN (17:27)
[2018-08-04] MEDS ORDERED: NICOTINE POLACRILEX 2 MG GUM BC PRN (17:27)
[2018-08-04] MEDS ORDERED: P-EPHED 60MG/TRIPROLIDI 2.5MG TABLET PO PRN (17:27)
[2018-08-04] MEDS ORDERED: LOPERAMIDE HCL 2 MG CAPSULE PO PRN (17:27)
[2018-08-04] MEDS ORDERED: MAGNESIUM CITRATE 300 ML BOTTLE PO PRN (17:27)
[2018-08-04] MEDS ORDERED: IBUPROFEN 400 MG TABLET (FP) PO PRN (17:27)
[2018-08-04] MEDS ORDERED: guaiFENesin/D-METHORPHAN HB 10 ML UNIT-DOSE CUPS PO PRN (17:27)
[2018-08-04] MEDS ORDERED: MAGNESIUM HYDROX 2400MG/30ML ORAL SUSPENSION 30 ML CUP PO PRN (17:27)
[2018-08-04] MEDS ORDERED: ACETAMINOPHEN 325 MG TABLET (FP) PO PRN (17:27)
[2018-08-04] MEDS ORDERED: METHADONE HCL 10 MG TABLET (FOR DETOX USE ONLY) PO ONE ×2 (17:27→23:00)
[2018-08-04] MEDS: diazePAM 5 MG TABLET PO PRN (19:09)
[2018-08-04] MEDS: THIAMINE HCL 100 MG TABLET (FP) PO SCH (22:34)
[2018-08-05] MEDS: diazePAM 5 MG TABLET PO PRN ×2 (10:05→22:05)
[2018-08-05] MEDS: PRENATAL VITAMINS W/ FOLIC ACID TABLET (FP) PO SCH (10:05)
[2018-08-05 10:08] LABS: HEMATOCRIT 38.9 % (35.4-49); HEMOGLOBIN 12.1 GM/dL (11.7-16.9); MCH 22.7 pg (25.7-33.7); MCHC 31.1 g/dl (32.0-35.9); MEAN CELL VOLUME 72.9 fl (80-96); PLATELET COUNT 178 K/MM3 (134-434); RBC 5.34 M/mm3 (4.00-5.60); RDW 15.6 % (11.9-15.9); WHITE BLOOD COUNT 4.1 K/mm3 (4.0-10.0)
[2018-08-05 10:46] LABS: ALBUMIN 3.3 g/dl (3.4-5.0); ALK PHOS 69 U/L (45-117); ANION GAP 5 MMOL/L (8-16); BILIRUBIN,TOTAL 0.5 mg/dL (0.2-1); BLOOD UREA NITROGEN 11 mg/dL (7-18); CALCIUM 8.7 mg/dL (8.5-10.1); CHLORIDE 106 mmol/L (98-107); CO2 30 mmol/L (21-32); GLUCOSE,RANDOM 75 mg/dL (74-106); POTASSIUM 4.4 mmol/L (3.5-5.1); SGOT/AST 14 U/L (15-37); SGPT/ALT 14 U/L (13-61); SODIUM 140 mmol/L (136-145); TOT PROT 6.4 g/dl (6.4-8.2)
--- NOTE | 2018-08-05 11:10 | PN ---
BHS COWS - Scale Resting Pulse: 0= [place] 80 or Below Sweatin=Flushed/Facial Moisture Restless Observation: 1= Difficult to Sit Still Pupil Size: 0= Normal to Room Light Bone or Joint Aches: 1= Mild Discomfort Runny Nose/ Eye Tearin= Nasal Congestion GI Upset > 30mins: 1= Stomach Cramp Tremor Observation of Outstretched Hands: 2= Slight Tremor Visible Yawning Observation: 1= 1-2x During Session Anxiety or Irritability: 1=Feels Anxious/Irritable Goose Flesh Skin: 0=Smooth Skin COWS Score: 10 BHS Progress Note (SOAP) Subjective: sleep disturbance Abd cramp Tremors Objective: 08/05/18 11:05 Sleeping, arousable to verbal stimuli Vital Signs Temperature 98.1 F 08/05/18 10:43 Pulse Rate 57 L 08/05/18 10:43 Respiratory Rate 18 08/05/18 10:43 Blood Pressure 154/98 08/05/18 10:43 O2 Sat by Pulse Oximetry (%) Laboratory Last Values WBC 4.1 K/mm3 (4.0-10.0) 08/05/18 07:00 RBC 5.34 M/mm3 (4.00-5.60) 08/05/18 07:00 Hgb 12.1 GM/dL (11.7-16.9) 08/05/18 07:00 Hct 38.9 % (35.4-49) 08/05/18 07:00 MCV 72.9 fl (80-96) L 08/05/18 07:00 MCH 22.7 pg (25.7-33.7) L 08/05/18 07:00 MCHC 31.1 g/dl (32.0-35.9) L 08/05/18 07:00 RDW 15.6 % (11.9-15.9) 08/05/18 07:00 Plt Count 178 K/MM3 (134-434) 08/05/18 07:00 MPV 8.0 fl (7.5-11.1) 08/05/18 07:00 Sodium 140 mmol/L (136-145) 08/05/18 07:00 Potassium 4.4 mmol/L (3.5-5.1) 08/05/18 07:00 Chloride 106 mmol/L (98-107) 08/05/18 07:00 Carbon Dioxide 30 mmol/L (21-32) 08/05/18 07:00 Anion Gap 5 MMOL/L (8-16) L 08/05/18 07:00 BUN 11 mg/dL (7-18) 08/05/18 07:00 Creatinine 1.0 mg/dL (0.55-1.3) 08/05/18 07:00 Creat Clearance w eGFR > 60 (>60) 08/05/18 07:00 Random Glucose 75 mg/dL (74-106) 08/05/18 07:00 Calcium 8.7 mg/dL (8.5-10.1) 08/05/18 07:00 Total Bilirubin 0.5 mg/dL (0.2-1) 08/05/18 07:00 AST 14 U/L (15-37) L 08/05/18 07:00 ALT 14 U/L (13-61) 08/05/18 07:00 Alkaline Phosphatase 69 U/L (45-117) 08/05/18 07:00 Total Protein 6.4 g/dl (6.4-8.2) 08/05/18 07:00 Albumin 3.3 g/dl (3.4-5.0) L 08/05/18 07:00 labs noted, pending UA Assessment: 08/05/18 11:10 withdrawal sx Plan: continue detox
[2018-08-05] MEDS: METHADONE HCL 10 MG TABLET (FOR DETOX USE ONLY) PO ONE ×2 (11:23→11:30)
[2018-08-05] MEDS ORDERED: FLU VACCINE QUAD 60 MCG/0.5 ML (MDV 18-19) IM ONE (12:00)
--- NOTE | 2018-08-05 12:18 | EKG ---
Test Reason : Blood Pressure : / mmHG Vent. Rate : 053 BPM Atrial Rate : 053 BPM P-R Int : 206 ms QRS Dur : 094 ms QT Int : 410 ms P-R-T Axes : 055 077 072 degrees QTc Int : 384 ms SINUS BRADYCARDIA OTHERWISE NORMAL ECG WHEN COMPARED WITH ECG OF 26-AUG-2017 17:50, INCOMPLETE RIGHT BUNDLE BRANCH BLOCK IS NO LONGER PRESENT Confirmed by PHYLICIA JC MD ([id number]) on 08/05/2018 12:18:40 PM Referred By: Iqra Hatch Confirmed By:PHYLICIA JC MD
[2018-08-05 18:48] LABS: URINE APPEARANCE CLEAR; URINE BILIRUBIN NEGATIVE (<2.0 mg/dL); URINE COLOR YELLOW; URINE GLUCOSE (UA) NEGATIVE (NEGATIVE); URINE KETONE NEGATIVE (NEGATIVE); URINE LEUK ESTERASE NEGATIVE (NEGATIVE); URINE NITRITE NEGATIVE (NEGATIVE); URINE PROTEIN NEGATIVE (NEGATIVE); URINE UROBILINOGEN NEGATIVE mg/dL (0.2-1.0)
[2018-08-05] MEDS ORDERED: cloNIDine HCL 0.1 MG TABLET PO ONE (21:14)
--- NOTE | 2018-08-05 21:19 | PN ---
BHS Progress Note Note: Patient current treated for opioid withdrawal with BP 155/99, P94, T97.7. elevated BP one time dose clonidine 0.1 mg ordered increase PO fluids continue to monitor
[2018-08-05] MEDS: THIAMINE HCL 100 MG TABLET (FP) PO SCH (22:05)
[2018-08-05] MEDS: MELATONIN 5 MG TABLETS PO PRN (22:06)
[2018-08-06] MEDS ORDERED: METHADONE HCL 5 MG TABLET (FOR DETOX USE ONLY) PO ONE (10:00)
[2018-08-06] MEDS: PRENATAL VITAMINS W/ FOLIC ACID TABLET (FP) PO SCH (10:16)
--- NOTE | 2018-08-06 10:35 | PN ---
BHS COWS - Scale Resting Pulse: 0= [place] 80 or Below Sweatin= Chills/Flushing Restless Observation: 0= Sits Still Pupil Size: 0= Normal to Room Light Bone or Joint Aches: 1= Mild Discomfort Runny Nose/ Eye Tearin= None GI Upset > 30mins: 1= Stomach Cramp Tremor Observation of Outstretched Hands: 0= None Yawning Observation: 0= None Anxiety or Irritability: 0= None Goose Flesh Skin: 0=Smooth Skin COWS Score: 3 BHS Progress Note (SOAP) Subjective: Patient presents with body aches and mild nausea. Objective: 08/06/18 10:35 Laboratory Tests 08/05/18 08/05/18 08/05/18 07:00 07:00 07:00 WBC 4.1 RBC 5.34 Hgb 12.1 Hct 38.9 MCV 72.9 L MCH 22.7 L MCHC 31.1 L RDW 15.6 Plt Count 178 MPV 8.0 Sodium 140 Potassium 4.4 Chloride 106 Carbon Dioxide 30 Anion Gap 5 L BUN 11 Creatinine 1.0 Creat Clearance w eGFR > 60 Random Glucose 75 Calcium 8.7 Total Bilirubin 0.5 AST 14 L ALT 14 Alkaline Phosphatase 69 Total Protein 6.4 Albumin 3.3 L Urine Color Urine Appearance Urine pH Ur Specific [place] Urine Protein Urine Glucose (UA) Urine Ketones Urine Blood Urine Nitrite Urine Bilirubin Urine Urobilinogen Ur Leukocyte Esterase RPR Titer Nonreactive 08/05/18 18:00 WBC RBC Hgb Hct MCV MCH MCHC RDW Plt Count MPV Sodium Potassium Chloride Carbon Dioxide Anion Gap BUN Creatinine Creat Clearance w eGFR Random Glucose Calcium Total Bilirubin AST ALT Alkaline Phosphatase Total Protein Albumin Urine Color Yellow Urine Appearance Clear Urine pH 6.0 D Ur Specific [place] 1.017 Urine Protein Negative Urine Glucose (UA) Negative Urine Ketones Negative Urine Blood Negative Urine Nitrite Negative Urine Bilirubin Negative Urine Urobilinogen Negative Ur Leukocyte Esterase Negative RPR Titer Vital Signs Temperature 97.4 F L 08/06/18 09:33 Pulse Rate 57 L 08/06/18 09:33 Respiratory Rate 20 08/06/18 09:33 Blood Pressure 137/98 08/06/18 09:33 O2 Sat by Pulse Oximetry (%) PE: alert oriented skin warm and dry car s1, s2 resp CTA bl GI soft bs+ nt nd ext no edema Assessment: 08/06/18 10:37 a/p: Withdrawal symptoms Plan: continue detox as per protocol encourage oral fluids continue to monitor clinically
[2018-08-06] MEDS: THIAMINE HCL 100 MG TABLET (FP) PO SCH (22:09)
[2018-08-06] MEDS: MELATONIN 5 MG TABLETS PO PRN (22:09)
[2018-08-06] MEDS: diazePAM 5 MG TABLET PO PRN (22:17)
[2018-08-07] MEDS: diazePAM 5 MG TABLET PO PRN (09:07)
[2018-08-07] MEDS ORDERED: METHADONE HCL 5 MG TABLET (FOR DETOX USE ONLY) PO ONE (10:00)
[2018-08-07] MEDS: PRENATAL VITAMINS W/ FOLIC ACID TABLET (FP) PO SCH (10:07)
--- NOTE | 2018-08-07 13:31 | PN ---
BHS COWS - Scale Resting Pulse: 0= [place] 80 or Below Sweatin= No chills or Flushing Restless Observation: 0= Sits Still Pupil Size: 0= Normal to Room Light Bone or Joint Aches: 0= None Runny Nose/ Eye Tearin= None GI Upset > 30mins: 0= None Tremor Observation of Outstretched Hands: 0= None Yawning Observation: 1= 1-2x During Session Anxiety or Irritability: 0= None Goose Flesh Skin: 0=Smooth Skin COWS Score: 1 BHS Progress Note (SOAP) Subjective: PATIENT RESPONDING WELL TO DETOX. PATIENT IS ALERT AND ORIENTED. CONVERSATION BUT STATES "I AM TIRED". IN NAD. Objective: 08/07/18 13:27 Vital Signs Temperature 98.5 F 08/07/18 10:07 Pulse Rate 70 08/07/18 10:07 Respiratory Rate 16 08/07/18 10:07 Blood Pressure 160/105 H 08/07/18 10:07 O2 Sat by Pulse Oximetry (%) Laboratory Tests 08/05/18 08/05/18 08/05/18 07:00 07:00 07:00 WBC 4.1 RBC 5.34 Hgb 12.1 Hct 38.9 MCV 72.9 L MCH 22.7 L MCHC 31.1 L RDW 15.6 Plt Count 178 MPV 8.0 Sodium 140 Potassium 4.4 Chloride 106 Carbon Dioxide 30 Anion Gap 5 L BUN 11 Creatinine 1.0 Creat Clearance w eGFR > 60 Random Glucose 75 Calcium 8.7 Total Bilirubin 0.5 AST 14 L ALT 14 Alkaline Phosphatase 69 Total Protein 6.4 Albumin 3.3 L Urine Color Urine Appearance Urine pH Ur Specific [place] Urine Protein Urine Glucose (UA) Urine Ketones Urine Blood Urine Nitrite Urine Bilirubin Urine Urobilinogen Ur Leukocyte Esterase RPR Titer Nonreactive 08/05/18 18:00 WBC RBC Hgb Hct MCV MCH MCHC RDW Plt Count MPV Sodium Potassium Chloride Carbon Dioxide Anion Gap BUN Creatinine Creat Clearance w eGFR Random Glucose Calcium Total Bilirubin AST ALT Alkaline Phosphatase Total Protein Albumin Urine Color Yellow Urine Appearance Clear Urine pH 6.0 D Ur Specific [place] 1.017 Urine Protein Negative Urine Glucose (UA) Negative Urine Ketones Negative Urine Blood Negative Urine Nitrite Negative Urine Bilirubin Negative Urine Urobilinogen Negative Ur Leukocyte Esterase Negative RPR Titer PE: ALERT AND ORIENTED. SLEEPING IN BED. CAR S1S2 RESP CTA BL EXT NO EDEMA, FULL ROM Assessment: 08/07/18 13:30 WITHDRAWAL SYNDROME Plan: PATIENT TOLERATING DETOX WELL REQUESTED TO BE D/C IN THE MORNING (08/08/18) [employer] WITH D/C PLAN METHADONE DOSE ADJUSTED CONTINUE TO MONITOR CLINICALLY.
[2018-08-07 14:21] VITALS: BP 145/104; PULSE 59; TEMP 98.7
[2018-08-07] MEDS ORDERED: cloNIDine HCL 0.1 MG TABLET PO ONE (14:35)
--- NOTE | 2018-08-07 14:35 | PN ---
[facility] Progress Note Note: NOTIFIED BY RN PATIENT REQUESTED TO SIGN OUT AMA. PATIENT ENCOURAGED TO COMPLETE DETOX AND INFORMED THAT BP HAS BEEN ELEVATED WHICH REQUIRED MEDICATION TREATMENT. PATIENT REFUSED TO COMPLETE DETOX. DENIES SI/HI. ENCOURAGED TO ATTEND GROUP MEETINGS TO PREVENT RELAPSE AND TO GO TO ER IF WITHDRAWAL SYMPTOMS OCCUR.
[2018-08-08] MEDS ORDERED: METHADONE HCL 5 MG TABLET (FOR DETOX USE ONLY) PO ONE (06:00)
[2018-08-08] MEDS ORDERED: METHADONE HCL 10 MG TABLET (FOR DETOX USE ONLY) PO ONE (10:00)
[2018-08-09] MEDS ORDERED: METHADONE HCL 5 MG TABLET (FOR DETOX USE ONLY) PO ONE (06:00)
== END 2018-08-07 14:40 | disposition left against medical advice (07) | DRG 770 ==
LOC: YASAS 11:10 → Y3N 16:55
PROC: HZ2ZZZZ Detoxification Services for Substance Abuse Treatment (ICD-10-PCS; principal; 2018-08-04)
DX: F11.23 Opioid dependence with withdrawal (principal); F14.20 Cocaine dependence, uncomplicated; F17.210 Nicotine dependence, cigarettes, uncomplicated; F32.9 Major depressive disorder, single episode, unspecified; R21 Rash and other nonspecific skin eruption; H91.91 Unspecified hearing loss, right ear; H53.8 Other visual disturbances; Z87.81 Personal history of (healed) traumatic fracture
CPT/HCPCS: 36415; 71045-TC-FY; 80053; 81003; 85027; 86593; 93005; 93010; J0735

== ENCOUNTER 2018-11-18 16:22 | Inpatient (IN) | payer OTHER ==
[2018-11-18 18:28] VITALS: BMI 22.4
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
[2018-11-18] MEDS ORDERED: diazePAM 5 MG TABLET PO PRN (21:56)
[2018-11-18] MEDS ORDERED: guaiFENesin/D-METHORPHAN HB 10 ML UNIT-DOSE CUPS PO PRN (21:56)
[2018-11-18] MEDS ORDERED: ACETAMINOPHEN 325 MG TABLET (FP) PO PRN (21:56)
[2018-11-18] MEDS ORDERED: MAGNESIUM HYDROX 2400MG/30ML ORAL SUSPENSION 30 ML CUP PO PRN (21:56)
[2018-11-18] MEDS ORDERED: LOPERAMIDE HCL 2 MG CAPSULE PO PRN (21:56)
[2018-11-18] MEDS ORDERED: P-EPHED 60MG/TRIPROLIDI 2.5MG TABLET PO PRN (21:56)
[2018-11-18] MEDS ORDERED: NICOTINE POLACRILEX 2 MG GUM BC PRN (21:56)
[2018-11-18] MEDS ORDERED: MENTHOL/PHENOL 1 EACH UD MM PRN (21:56)
[2018-11-18] MEDS ORDERED: MAG HYDROX/AL HYDROX/SIMETH 30 ML UNIT-DOSE CUP PO PRN (21:56)
[2018-11-18] MEDS ORDERED: METHADONE HCL 10 MG TABLET (FOR DETOX USE ONLY) PO ONE ×2 (21:56→23:00)
[2018-11-18] MEDS ORDERED: MAGNESIUM CITRATE 300 ML BOTTLE PO PRN (21:56)
[2018-11-18] MEDS ORDERED: IBUPROFEN 400 MG TABLET (FP) PO PRN (21:56)
[2018-11-18] MEDS ORDERED: MELATONIN 5 MG TABLETS PO PRN (22:00)
[2018-11-18] MEDS: THIAMINE HCL 100 MG TABLET (FP) PO SCH (23:32)
[2018-11-19] MEDS ORDERED: METHADONE HCL 10 MG TABLET (FOR DETOX USE ONLY) PO ONE (10:00)
[2018-11-19 10:30] LABS: HEMATOCRIT 39.5 % (35.4-49); HEMOGLOBIN 11.9 GM/dL (11.7-16.9); MCH 22.3 pg (25.7-33.7); MCHC 30.1 g/dl (32.0-35.9); MEAN CELL VOLUME 73.9 fl (80-96); MEAN PLT VOLUME 8.1 fl (7.5-11.1); PLATELET COUNT 197 K/MM3 (134-434); RBC 5.34 M/mm3 (4.00-5.60); RDW 15.3 % (11.9-15.9); WHITE BLOOD COUNT 4.1 K/mm3 (4.0-10.0)
[2018-11-19 10:57] LABS: ALBUMIN 3.3 g/dl (3.4-5.0); ALK PHOS 71 U/L (45-117); ANION GAP 7 MMOL/L (8-16); BILIRUBIN,TOTAL 0.4 mg/dL (0.2-1); BLOOD UREA NITROGEN 11 mg/dL (7-18); CALCIUM 8.5 mg/dL (8.5-10.1); CHLORIDE 107 mmol/L (98-107); CO2 27 mmol/L (21-32); CREATININE 0.9 mg/dL (0.55-1.3); GLUCOSE,RANDOM 89 mg/dL (74-106); POTASSIUM 4.3 mmol/L (3.5-5.1); SGOT/AST 14 U/L (15-37); SGPT/ALT 17 U/L (13-61); SODIUM 141 mmol/L (136-145); TOT PROT 6.2 g/dl (6.4-8.2)
[2018-11-19] MEDS: PRENATAL VITAMINS W/ FOLIC ACID TABLET (FP) PO SCH (11:17)
[2018-11-19] MEDS: NICOTINE 14 MG/24 HOURS TOPICAL PATCH TD SCH (11:19)
--- NOTE | 2018-11-19 14:26 | PN ---
BHS COWS - Scale Resting Pulse: 0= [place] 80 or Below Sweatin= Chills/Flushing Restless Observation: 0= Sits Still Pupil Size: 0= Normal to Room Light Bone or Joint Aches: 2= Severe Diffuse Aches Runny Nose/ Eye Tearin= Nasal Congestion GI Upset > 30mins: 0= None Tremor Observation of Outstretched Hands: 0= None Yawning Observation: 1= 1-2x During Session Anxiety or Irritability: 2=Irritable/Anxious Goose Flesh Skin: 3=Piloe[place] COWS Score: 10 BHS Progress Note (SOAP) Subjective: Body Aches, Fatigue, Interrupted Sleep. Objective: PATIENT A & O X 3. IN NO ACUTE DISTRESS. 11/19/18 14:27 Vital Signs Temperature 98.4 F 11/19/18 09:06 Pulse Rate 57 L 11/19/18 09:06 Respiratory Rate 18 11/19/18 09:06 Blood Pressure 142/99 11/19/18 09:06 O2 Sat by Pulse Oximetry (%) Laboratory Tests 11/19/18 11/19/18 11/19/18 07:00 07:00 07:00 WBC 4.1 RBC 5.34 Hgb 11.9 Hct 39.5 MCV 73.9 L MCH 22.3 L MCHC 30.1 L RDW 15.3 Plt Count 197 MPV 8.1 Sodium 141 Potassium 4.3 Chloride 107 Carbon Dioxide 27 Anion Gap 7 L BUN 11 Creatinine 0.9 Creat Clearance w eGFR > 60 Random Glucose 89 Calcium 8.5 Total Bilirubin 0.4 AST 14 L ALT 17 Alkaline Phosphatase 71 Total Protein 6.2 L Albumin 3.3 L RPR Titer Nonreactive LABS NOTED. UA RESULTS PENDING. 11/19/18 14:31 Assessment: 11/19/18 14:28 WITHDRAWAL SYMPTOMS. ELEVATED BLOOD PRESSURE (NO KNOWN HISTORY OF HYPERTENSION). 11/19/18 14:30 Plan: CONTINUE DETOX. ENCOURAGE AMBULATION. CONTINUE TO MONITOR BLOOD PRESSURE.
[2018-11-19 15:28] LABS: URINE APPEARANCE CLEAR; URINE BILIRUBIN NEGATIVE (<2.0 mg/dL); URINE COLOR YELLOW; URINE GLUCOSE (UA) NEGATIVE (NEGATIVE); URINE KETONE NEGATIVE (NEGATIVE); URINE LEUK ESTERASE NEGATIVE (NEGATIVE); URINE NITRITE NEGATIVE (NEGATIVE); URINE PROTEIN NEGATIVE (NEGATIVE)
[2018-11-19] MEDS: THIAMINE HCL 100 MG TABLET (FP) PO SCH (22:56)
[2018-11-20] MEDS ORDERED: METHADONE HCL 5 MG TABLET (FOR DETOX USE ONLY) PO ONE (10:00)
[2018-11-20] MEDS: NICOTINE 14 MG/24 HOURS TOPICAL PATCH TD SCH (10:34)
[2018-11-20] MEDS: PRENATAL VITAMINS W/ FOLIC ACID TABLET (FP) PO SCH (10:34)
--- NOTE | 2018-11-20 10:46 | PN ---
BHS COWS - Scale Resting Pulse: 0= [place] 80 or Below Sweatin=Flushed/Facial Moisture Restless Observation: 1= Difficult to Sit Still Pupil Size: 0= Normal to Room Light Bone or Joint Aches: 2= Severe Diffuse Aches Runny Nose/ Eye Tearin= Nasal Congestion GI Upset > 30mins: 0= None Tremor Observation of Outstretched Hands: 1= Tremor [place], Not Seen Yawning Observation: 1= 1-2x During Session Anxiety or Irritability: 1=Feels Anxious/Irritable Goose Flesh Skin: 0=Smooth Skin COWS Score: 9 S Progress Note (SOAP) Subjective: body aches sweats shakes interrupted sleep chills Objective: 11/20/18 10:44 Vital Signs Temperature 97.3 F L 11/20/18 09:28 Pulse Rate 64 11/20/18 09:28 Respiratory Rate 18 11/20/18 09:28 Blood Pressure 136/63 11/20/18 09:28 O2 Sat by Pulse Oximetry (%) Laboratory Tests 11/18/18 11/19/18 11/19/18 11:45 07:00 07:00 WBC 4.1 RBC 5.34 Hgb 11.9 Hct 39.5 MCV 73.9 L MCH 22.3 L MCHC 30.1 L RDW 15.3 Plt Count 197 MPV 8.1 Sodium 141 Potassium 4.3 Chloride 107 Carbon Dioxide 27 Anion Gap 7 L BUN 11 Creatinine 0.9 Creat Clearance w eGFR > 60 Random Glucose 89 Calcium 8.5 Total Bilirubin 0.4 AST 14 L ALT 17 Alkaline Phosphatase 71 Total Protein 6.2 L Albumin 3.3 L Urine Color Yellow Urine Appearance Clear Urine pH 7.0 Ur Specific [place] 1.024 Urine Protein Negative Urine Glucose (UA) Negative Urine Ketones Negative Urine Blood Negative Urine Nitrite Negative Urine Bilirubin Negative Urine Urobilinogen 2.0 Ur Leukocyte Esterase Negative RPR Titer 11/19/18 07:00 WBC RBC Hgb Hct MCV MCH MCHC RDW Plt Count MPV Sodium Potassium Chloride Carbon Dioxide Anion Gap BUN Creatinine Creat Clearance w eGFR Random Glucose Calcium Total Bilirubin AST ALT Alkaline Phosphatase Total Protein Albumin Urine Color Urine Appearance Urine pH Ur Specific [place] Urine Protein Urine Glucose (UA) Urine Ketones Urine Blood Urine Nitrite Urine Bilirubin Urine Urobilinogen Ur Leukocyte Esterase RPR Titer Nonreactive aaox3 ambulating no acute distress Assessment: 11/20/18 10:45 withdrawal sx Plan: continue detox increase fluids
[2018-11-20] MEDS: THIAMINE HCL 100 MG TABLET (FP) PO SCH (23:00)
[2018-11-21 09:34] VITALS: BP 140/99; PULSE 74; TEMP 97.5
[2018-11-21] MEDS ORDERED: METHADONE HCL 5 MG TABLET (FOR DETOX USE ONLY) PO ONE (10:00)
[2018-11-21] MEDS: NICOTINE 14 MG/24 HOURS TOPICAL PATCH TD SCH (10:38)
[2018-11-21] MEDS: PRENATAL VITAMINS W/ FOLIC ACID TABLET (FP) PO SCH (10:38)
--- NOTE | 2018-11-21 14:19 | PN ---
BHS Progress Note (SOAP) Subjective: Fatigue, Sweating, Body Aches. Objective: PATIENT A & O X 3. IN NO ACUTE DISTRESS. 11/21/18 14:20 Vital Signs Temperature 97.5 F L 11/21/18 09:33 Pulse Rate 74 11/21/18 09:33 Respiratory Rate 18 11/21/18 09:33 Blood Pressure 140/99 11/21/18 09:33 O2 Sat by Pulse Oximetry (%) Laboratory Tests 11/18/18 11/19/18 11/19/18 11:45 07:00 07:00 WBC 4.1 RBC 5.34 Hgb 11.9 Hct 39.5 MCV 73.9 L MCH 22.3 L MCHC 30.1 L RDW 15.3 Plt Count 197 MPV 8.1 Sodium 141 Potassium 4.3 Chloride 107 Carbon Dioxide 27 Anion Gap 7 L BUN 11 Creatinine 0.9 Creat Clearance w eGFR > 60 Random Glucose 89 Calcium 8.5 Total Bilirubin 0.4 AST 14 L ALT 17 Alkaline Phosphatase 71 Total Protein 6.2 L Albumin 3.3 L Urine Color Yellow Urine Appearance Clear Urine pH 7.0 Ur Specific [place] 1.024 Urine Protein Negative Urine Glucose (UA) Negative Urine Ketones Negative Urine Blood Negative Urine Nitrite Negative Urine Bilirubin Negative Urine Urobilinogen 2.0 Ur Leukocyte Esterase Negative RPR Titer 11/19/18 07:00 WBC RBC Hgb Hct MCV MCH MCHC RDW Plt Count MPV Sodium Potassium Chloride Carbon Dioxide Anion Gap BUN Creatinine Creat Clearance w eGFR Random Glucose Calcium Total Bilirubin AST ALT Alkaline Phosphatase Total Protein Albumin Urine Color Urine Appearance Urine pH Ur Specific [place] Urine Protein Urine Glucose (UA) Urine Ketones Urine Blood Urine Nitrite Urine Bilirubin Urine Urobilinogen Ur Leukocyte Esterase RPR Titer Nonreactive LABS NOTED. Assessment: 11/21/18 14:20 WITHDRAWAL SYMPTOMS. Plan: CONTINUE DETOX. INCREASE DAILY PO FLUID INTAKE.
--- NOTE | 2018-11-21 14:25 | DS ---
[facility] Detox Discharge Summary Admission Date: 11/18/18 Discharge Date: 11/21/18 - History Present History: Cocaine Dependence, Opioid Dependence Additional Comments: PATIENT DOES NOT WISH TO REMAIN TO COMPLETE DETOX REGIMEN. RISKS OF LEAVING DETOX UNIT AGAINST MEDICAL ADVICE AND PRIOR TO COMPLETION OF DETOX REGIMEN EXPLAINED TO PATIENT. PATIENT ADVISED TO GO IMMEDIATELY TO NEAREST ER SHOULD ANY INTOLERABLE DETOX SYMPTOMS DEVELOP AT ANY TIME. PATIENT VERBALIZED UNDERSTANDING OF ALL INFORMATION / RECOMMENDATIONS PRESENTED TO HIM PRIOR TO DEPARTURE FROM DETOX UNIT. PATIENT LEFT DETOX UNIT IN STABLE MEDICAL CONDITION. Pertinent Past History: Nicoting Dependence, [id number], History of Bilateral Lower Limb Edema, History of Depression, History of Lymph Edema, History of Positive PPD. - Physical Exam Results Vital Signs: Vital Signs Temperature 97.5 F L 11/21/18 09:33 Pulse Rate 74 11/21/18 09:33 Respiratory Rate 18 11/21/18 09:33 Blood Pressure 140/99 11/21/18 09:33 O2 Sat by Pulse Oximetry (%) Pertinent Admission Physical Exam Findings: WITHDRAWAL SYMPTOMS. Laboratory Tests 11/18/18 11/19/18 11/19/18 11:45 07:00 07:00 WBC 4.1 RBC 5.34 Hgb 11.9 Hct 39.5 MCV 73.9 L MCH 22.3 L MCHC 30.1 L RDW 15.3 Plt Count 197 MPV 8.1 Sodium 141 Potassium 4.3 Chloride 107 Carbon Dioxide 27 Anion Gap 7 L BUN 11 Creatinine 0.9 Creat Clearance w eGFR > 60 Random Glucose 89 Calcium 8.5 Total Bilirubin 0.4 AST 14 L ALT 17 Alkaline Phosphatase 71 Total Protein 6.2 L Albumin 3.3 L Urine Color Yellow Urine Appearance Clear Urine pH 7.0 Ur Specific [place] 1.024 Urine Protein Negative Urine Glucose (UA) Negative Urine Ketones Negative Urine Blood Negative Urine Nitrite Negative Urine Bilirubin Negative Urine Urobilinogen 2.0 Ur Leukocyte Esterase Negative RPR Titer 11/19/18 07:00 WBC RBC Hgb Hct MCV MCH MCHC RDW Plt Count MPV Sodium Potassium Chloride Carbon Dioxide Anion Gap BUN Creatinine Creat Clearance w eGFR Random Glucose Calcium Total Bilirubin AST ALT Alkaline Phosphatase Total Protein Albumin Urine Color Urine Appearance Urine pH Ur Specific [place] Urine Protein Urine Glucose (UA) Urine Ketones Urine Blood Urine Nitrite Urine Bilirubin Urine Urobilinogen Ur Leukocyte Esterase RPR Titer Nonreactive LABS NOTED. - Treatment Hospital Course: Detoxed Safely - Medication Discharge Medications: Ambulatory Orders NK [No Known Home Medication] 08/04/18 - Diagnosis (1) At risk for dehydration due to poor fluid intake Status: Acute (2) Depressed affect Status: Acute (3) Irritability due to drug withdrawal syndrome Status: Acute Qualifiers: Complication of substance-induced condition: uncomplicated Qualified Code(s ): F19.930 - Other psychoactive substance use, unspecified with withdrawal, uncomplicated (4) Nicotine dependence Status: Acute Qualifiers: Nicotine product type: cigarettes Substance use status: uncomplicated Qualified Code(s): F17.210 - Nicotine dependence, cigarettes, uncomplicated (5) Opioid dependence with withdrawal Status: Acute (6) Bilateral lower extremity edema Status: Chronic (7) Cocaine dependence, uncomplicated Status: Chronic (8) Hard of hearing Status: Chronic Qualifiers: Hearing loss type: unspecified Laterality: right Qualified Code(s): H91.91 - Unspecified hearing loss, right ear (9) History of positive PPD Status: Chronic (10) Lymph edema Status: Chronic - AMA Did Patient Leave Against Medical Advice: Yes (PATIENT DID NOT WISH TO REMAIN TO COMPLETE DETOX REGIMEN.)
[2018-11-22] MEDS ORDERED: METHADONE HCL 10 MG TABLET (FOR DETOX USE ONLY) PO ONE (10:00)
[2018-11-23] MEDS ORDERED: METHADONE HCL 5 MG TABLET (FOR DETOX USE ONLY) PO ONE (06:00)
== END 2018-11-21 11:20 | disposition left against medical advice (07) | DRG 770 ==
LOC: YASAS 16:22 → Y6N 22:14
PROC: HZ2ZZZZ Detoxification Services for Substance Abuse Treatment (ICD-10-PCS; principal; 2018-11-18)
DX: F11.23 Opioid dependence with withdrawal (principal); F14.20 Cocaine dependence, uncomplicated; F17.210 Nicotine dependence, cigarettes, uncomplicated; F32.9 Major depressive disorder, single episode, unspecified; R63.8 Other symptoms and signs concerning food and fluid intake; R60.0 Localized edema; H91.91 Unspecified hearing loss, right ear; R76.11 Nonspecific reaction to tuberculin skin test without active tuberculosis; R03.0 Elevated blood-pressure reading, without diagnosis of hypertension; I89.0 Lymphedema, not elsewhere classified
CPT/HCPCS: 36415; 80053; 81003; 85027; 86593

== ENCOUNTER 2019-09-08 10:32 | Inpatient (IN) | payer OTHER ==
[2019-09-08 11:37] VITALS: BMI 21.7
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
[2019-09-08] MEDS ORDERED: METHOCARBAMOL 500 MG TABLET PO PRN (12:02)
[2019-09-08] MEDS ORDERED: ACETAMINOPHEN 325 MG TABLET (FP) PO PRN ×2 (12:02)
[2019-09-08] MEDS ORDERED: hydrOXYzine PAMOATE 25 MG CAPSULE (FP) PO PRN (12:02)
[2019-09-08] MEDS ORDERED: MAGNESIUM HYDROX 2400MG/30ML ORAL SUSPENSION 30 ML CUP PO PRN (12:02)
[2019-09-08] MEDS ORDERED: IBUPROFEN 400 MG TABLET (FP) PO PRN (12:02)
[2019-09-08] MEDS ORDERED: MENTHOL/PHENOL 1 EACH UD MM PRN (12:02)
[2019-09-08] MEDS ORDERED: MELATONIN 5 MG TABLETS PO PRN (12:02)
[2019-09-08] MEDS ORDERED: guaiFENesin 200 MG/10 ML 10 ML UNIT-DOSE CUPS PO PRN (12:02)
[2019-09-08] MEDS ORDERED: MAG HYDROX/AL HYDROX/SIMETH 30 ML UNIT-DOSE CUP PO PRN (12:02)
[2019-09-08] MEDS ORDERED: MAGNESIUM CITRATE 300 ML BOTTLE PO PRN (12:02)
[2019-09-08] MEDS ORDERED: cloNIDine HCL 0.1 MG TABLET PO PRN (12:02)
[2019-09-08] MEDS ORDERED: BISMUTH SUBSALICYLATE 262 MG/15 ML BTL PO PRN (12:02)
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
[2019-09-08] MEDS ORDERED: METHADONE HCL 10 MG TABLET (FOR DETOX USE ONLY) PO ONE (14:05)
[2019-09-08 17:07] LABS: ALBUMIN 4.4 g/dl (3.4-5.0); BILIRUBIN,TOTAL 0.7 mg/dL (0.2-1); CALCIUM 9.5 mg/dL (8.5-10.1); CREATININE 0.9 mg/dL (0.55-1.3); POTASSIUM 4.1 mmol/L (3.5-5.1); TOT PROT 8.3 g/dl (6.4-8.2)
[2019-09-08 18:13] LABS: HEMATOCRIT 44.4 % (35.4-49); HEMOGLOBIN 13.6 GM/dL (11.7-16.9); MCH 22.4 pg (25.7-33.7); MCHC 30.7 g/dl (32.0-35.9); MEAN CELL VOLUME 72.9 fl (80-96); MEAN PLT VOLUME 8.4 fl (7.5-11.1); PLATELET COUNT 205 K/MM3 (134-434); RBC 6.09 M/mm3 (4.00-5.60); RDW 15.3 % (11.9-15.9); WHITE BLOOD COUNT 11.1 K/mm3 (4.0-10.0)
[2019-09-08] MEDS: THIAMINE HCL 100 MG TABLET (FP) PO SCH (21:59)
[2019-09-09] MEDS ORDERED: METHADONE HCL 10 MG TABLET (FOR DETOX USE ONLY) ONE (08:54)
[2019-09-09] MEDS ORDERED: METHADONE HCL 5 MG TABLET (FOR DETOX USE ONLY) ONE (08:54)
[2019-09-09] MEDS ORDERED: METHADONE (DETOX) 20 MG, METHADONE (DETOX) 5 MG PO ONE (10:00)
[2019-09-09] MEDS: PRENATAL VITAMINS W/ FOLIC ACID TABLET (FP) PO SCH (10:33)
[2019-09-09] MEDS: HYDROCHLOROTHIAZIDE 12.5 MG CAPSULE (FP) PO SCH (10:33)
[2019-09-09] MEDS: NICOTINE 14 MG/24 HOURS TOPICAL PATCH TD SCH (10:35)
--- NOTE | 2019-09-09 12:52 | PN ---
BHS COWS - Scale Resting Pulse: 0= [place] 80 or Below Sweatin= Chills/Flushing Restless Observation: 0= Sits Still Pupil Size: 1= Pupils >than Normal Bone or Joint Aches: 1= Mild Discomfort Runny Nose/ Eye Tearin= Nasal Congestion GI Upset > 30mins: 1= Stomach Cramp Tremor Observation of Outstretched Hands: 2= Slight Tremor Visible Yawning Observation: 1= 1-2x During Session Anxiety or Irritability: 2=Irritable/Anxious Goose Flesh Skin: 3=Piloe[place] COWS Score: 13 BHS Progress Note (SOAP) Subjective: 59 years old male admitted on 09/08/19 for opiate withdrawal sx management treated with methadone detox regimen patient tolerate methadone well 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 Objective: 09/09/19 12:51 Vital Signs Temperature 98.4 F 09/09/19 09:25 Pulse Rate 62 09/09/19 09:25 Respiratory Rate 18 09/09/19 09:25 Blood Pressure 119/76 09/09/19 09:25 O2 Sat by Pulse Oximetry (%) Laboratory Last Values WBC 11.1 K/mm3 (4.0-10.0) H 09/08/19 12:40 RBC 6.09 M/mm3 (4.00-5.60) H 09/08/19 12:40 Hgb 13.6 GM/dL (11.7-16.9) 09/08/19 12:40 Hct 44.4 % (35.4-49) 09/08/19 12:40 MCV 72.9 fl (80-96) L 09/08/19 12:40 MCH 22.4 pg (25.7-33.7) L 09/08/19 12:40 MCHC 30.7 g/dl (32.0-35.9) L 09/08/19 12:40 RDW 15.3 % (11.9-15.9) 09/08/19 12:40 Plt Count 205 K/MM3 (134-434) 09/08/19 12:40 MPV 8.4 fl (7.5-11.1) 09/08/19 12:40 Sodium 137 mmol/L (136-145) 09/08/19 12:40 Potassium 4.1 mmol/L (3.5-5.1) 09/08/19 12:40 Chloride 100 mmol/L (98-107) 09/08/19 12:40 Carbon Dioxide 31 mmol/L (21-32) 09/08/19 12:40 Anion Gap 6 MMOL/L (8-16) L 09/08/19 12:40 BUN 11.0 mg/dL (7-18) 09/08/19 12:40 Creatinine 0.9 mg/dL (0.55-1.3) 09/08/19 12:40 Est GFR (CKD-EPI)AfAm 107.97 09/08/19 12:40 Est GFR (CKD-EPI)NonAf 93.16 09/08/19 12:40 Random Glucose 87 mg/dL (74-106) 09/08/19 12:40 Calcium 9.5 mg/dL (8.5-10.1) 09/08/19 12:40 Total Bilirubin 0.7 mg/dL (0.2-1) 09/08/19 12:40 AST 9 U/L (15-37) L 09/08/19 12:40 ALT 19 U/L (13-61) 09/08/19 12:40 Alkaline Phosphatase 90 U/L (45-117) 09/08/19 12:40 Total Protein 8.3 g/dl (6.4-8.2) H 09/08/19 12:40 Albumin 4.4 g/dl (3.4-5.0) 09/08/19 12:40 RPR Titer Nonreactive (NONREACTIVE) 09/08/19 12:40 lab noted Assessment: 09/09/19 12:51 opiate withdrawal sx Plan: continue methadone detox regimen
[2019-09-09] MEDS: SODIUM CHLORIDE NASAL SPRAY 44 ML BOTTLE NS SCH ×2 (14:44→22:02)
[2019-09-09] MEDS: THIAMINE HCL 100 MG TABLET (FP) PO SCH (22:03)
[2019-09-10] MEDS: SODIUM CHLORIDE NASAL SPRAY 44 ML BOTTLE NS SCH ×3 (07:04→22:03)
[2019-09-10] MEDS: PRENATAL VITAMINS W/ FOLIC ACID TABLET (FP) PO SCH (09:30)
[2019-09-10] MEDS: NICOTINE 14 MG/24 HOURS TOPICAL PATCH TD SCH (09:30)
[2019-09-10] MEDS: HYDROCHLOROTHIAZIDE 12.5 MG CAPSULE (FP) PO SCH (09:30)
[2019-09-10] MEDS ORDERED: METHADONE HCL 10 MG TABLET (FOR DETOX USE ONLY) PO ONE (10:00)
--- NOTE | 2019-09-10 12:10 | PN ---
BHS COWS - Scale Resting Pulse: 0= [place] 80 or Below Sweatin= Chills/Flushing Restless Observation: 0= Sits Still Pupil Size: 1= Pupils >than Normal Bone or Joint Aches: 1= Mild Discomfort Runny Nose/ Eye Tearin= Nasal Congestion GI Upset > 30mins: 1= Stomach Cramp Tremor Observation of Outstretched Hands: 2= Slight Tremor Visible Yawning Observation: 1= 1-2x During Session Anxiety or Irritability: 2=Irritable/Anxious Goose Flesh Skin: 0=Smooth Skin COWS Score: 10 S Progress Note (SOAP) Subjective: 59 years old male admitted on 09/08/19 for opiate withdrawal sx management treated with methadone detox regimen patient tolerated well less body aches sleep better at night Objective: 09/10/19 12:09 Vital Signs Temperature 96.9 F L 09/10/19 09:11 Pulse Rate 58 L 09/10/19 09:11 Respiratory Rate 18 09/10/19 09:11 Blood Pressure 121/75 09/10/19 09:11 O2 Sat by Pulse Oximetry (%) Laboratory Last Values WBC 11.1 K/mm3 (4.0-10.0) H 09/08/19 12:40 RBC 6.09 M/mm3 (4.00-5.60) H 09/08/19 12:40 Hgb 13.6 GM/dL (11.7-16.9) 09/08/19 12:40 Hct 44.4 % (35.4-49) 09/08/19 12:40 MCV 72.9 fl (80-96) L 09/08/19 12:40 MCH 22.4 pg (25.7-33.7) L 09/08/19 12:40 MCHC 30.7 g/dl (32.0-35.9) L 09/08/19 12:40 RDW 15.3 % (11.9-15.9) 09/08/19 12:40 Plt Count 205 K/MM3 (134-434) 09/08/19 12:40 MPV 8.4 fl (7.5-11.1) 09/08/19 12:40 Sodium 137 mmol/L (136-145) 09/08/19 12:40 Potassium 4.1 mmol/L (3.5-5.1) 09/08/19 12:40 Chloride 100 mmol/L (98-107) 09/08/19 12:40 Carbon Dioxide 31 mmol/L (21-32) 09/08/19 12:40 Anion Gap 6 MMOL/L (8-16) L 09/08/19 12:40 BUN 11.0 mg/dL (7-18) 09/08/19 12:40 Creatinine 0.9 mg/dL (0.55-1.3) 09/08/19 12:40 Est GFR (CKD-EPI)AfAm 107.97 09/08/19 12:40 Est GFR (CKD-EPI)NonAf 93.16 09/08/19 12:40 Random Glucose 87 mg/dL (74-106) 09/08/19 12:40 Calcium 9.5 mg/dL (8.5-10.1) 09/08/19 12:40 Total Bilirubin 0.7 mg/dL (0.2-1) 09/08/19 12:40 AST 9 U/L (15-37) L 09/08/19 12:40 ALT 19 U/L (13-61) 09/08/19 12:40 Alkaline Phosphatase 90 U/L (45-117) 09/08/19 12:40 Total Protein 8.3 g/dl (6.4-8.2) H 09/08/19 12:40 Albumin 4.4 g/dl (3.4-5.0) 09/08/19 12:40 RPR Titer Nonreactive (NONREACTIVE) 09/08/19 12:40 lab noted Assessment: 09/10/19 12:10 opiate withdrawal sx Plan: continue methadone detox regimen
[2019-09-10] MEDS: THIAMINE HCL 100 MG TABLET (FP) PO SCH (22:01)
[2019-09-11] MEDS: SODIUM CHLORIDE NASAL SPRAY 44 ML BOTTLE NS SCH (07:17)
[2019-09-11 09:21] VITALS: BP 153/94; PULSE 60; TEMP 97.9
[2019-09-11] MEDS ORDERED: METHADONE HCL 5 MG TABLET (FOR DETOX USE ONLY) ONE (09:29)
[2019-09-11] MEDS ORDERED: METHADONE HCL 10 MG TABLET (FOR DETOX USE ONLY) ONE (09:29)
[2019-09-11] MEDS: HYDROCHLOROTHIAZIDE 12.5 MG CAPSULE (FP) PO SCH (09:43)
[2019-09-11] MEDS: PRENATAL VITAMINS W/ FOLIC ACID TABLET (FP) PO SCH (09:43)
[2019-09-11] MEDS ORDERED: METHADONE (DETOX) 10 MG, METHADONE (DETOX) 5 MG PO ONE (10:00)
[2019-09-11] MEDS: NICOTINE 14 MG/24 HOURS TOPICAL PATCH TD SCH (10:25)
--- NOTE | 2019-09-11 12:22 | DS ---
[facility] Detox Discharge Summary Admission Date: 09/08/19 Discharge Date: 09/11/19 - History Present History: Opioid Dependence Additional Comments: 59 years old male admitted on 09/08/19 for opiate withdrawal sx management treated with methadone detox regimen patient tolerate well patient is alert oriented x 3 insists to leave the detox due to appointment in the community patient refuses discharge exist physical examine refuses cows - Physical Exam Results Vital Signs: Vital Signs Temperature 97.9 F 09/11/19 09:20 Pulse Rate 60 09/11/19 09:20 Respiratory Rate 18 09/11/19 09:20 Blood Pressure 153/94 09/11/19 09:20 O2 Sat by Pulse Oximetry (%) Pertinent Admission Physical Exam Findings: opiate withdrawal sx Laboratory Last Values WBC 11.1 K/mm3 (4.0-10.0) H 09/08/19 12:40 RBC 6.09 M/mm3 (4.00-5.60) H 09/08/19 12:40 Hgb 13.6 GM/dL (11.7-16.9) 09/08/19 12:40 Hct 44.4 % (35.4-49) 09/08/19 12:40 MCV 72.9 fl (80-96) L 09/08/19 12:40 MCH 22.4 pg (25.7-33.7) L 09/08/19 12:40 MCHC 30.7 g/dl (32.0-35.9) L 09/08/19 12:40 RDW 15.3 % (11.9-15.9) 09/08/19 12:40 Plt Count 205 K/MM3 (134-434) 09/08/19 12:40 MPV 8.4 fl (7.5-11.1) 09/08/19 12:40 Sodium 137 mmol/L (136-145) 09/08/19 12:40 Potassium 4.1 mmol/L (3.5-5.1) 09/08/19 12:40 Chloride 100 mmol/L (98-107) 09/08/19 12:40 Carbon Dioxide 31 mmol/L (21-32) 09/08/19 12:40 Anion Gap 6 MMOL/L (8-16) L 09/08/19 12:40 BUN 11.0 mg/dL (7-18) 09/08/19 12:40 Creatinine 0.9 mg/dL (0.55-1.3) 09/08/19 12:40 Est GFR (CKD-EPI)AfAm 107.97 09/08/19 12:40 Est GFR (CKD-EPI)NonAf 93.16 09/08/19 12:40 Random Glucose 87 mg/dL (74-106) 09/08/19 12:40 Calcium 9.5 mg/dL (8.5-10.1) 09/08/19 12:40 Total Bilirubin 0.7 mg/dL (0.2-1) 09/08/19 12:40 AST 9 U/L (15-37) L 09/08/19 12:40 ALT 19 U/L (13-61) 09/08/19 12:40 Alkaline Phosphatase 90 U/L (45-117) 09/08/19 12:40 Total Protein 8.3 g/dl (6.4-8.2) H 09/08/19 12:40 Albumin 4.4 g/dl (3.4-5.0) 09/08/19 12:40 RPR Titer Nonreactive (NONREACTIVE) 09/08/19 12:40 lab noted - Treatment Hospital Course: Detox Protocol Followed, Responded well Patient has Accepted a Rehab Referral to: community support approach - Medication Discharge Medications: Ambulatory Orders Naloxone HCl [Narcan] 4 mg NS ASDIR PRN #1 spray 09/09/19 - Diagnosis (1) Opioid dependence with withdrawal Status: Acute (2) History of positive PPD Status: Resolved - AMA Did Patient Leave Against Medical Advice: Yes
[2019-09-12] MEDS ORDERED: METHADONE HCL 10 MG TABLET (FOR DETOX USE ONLY) PO ONE (10:00)
[2019-09-13] MEDS ORDERED: METHADONE HCL 5 MG TABLET (FOR DETOX USE ONLY) PO ONE (06:00)
== END 2019-09-11 10:02 | disposition left against medical advice (07) | DRG 770 ==
LOC: YASAS 10:32 → Y3N 12:45
PROVIDERS: ADMIT Allergy & Immunology; ATTEND Allergy & Immunology
PROC: HZ2ZZZZ Detoxification Services for Substance Abuse Treatment (ICD-10-PCS; principal; 2019-09-08)
DX: F11.23 Opioid dependence with withdrawal (principal); F14.20 Cocaine dependence, uncomplicated; F17.210 Nicotine dependence, cigarettes, uncomplicated; H91.91 Unspecified hearing loss, right ear; R60.0 Localized edema; R45.89 Other symptoms and signs involving emotional state; R76.11 Nonspecific reaction to tuberculin skin test without active tuberculosis
CPT/HCPCS: 36415; 71046-TC-FY; 80053; 85027; 86593; J0735

== ENCOUNTER 2022-02-02 13:12 | Observation (INO) | payer OTHER ==
[2022-02-02 14:58] LABS: BASO % 1.3 % (0-2.0); HEMATOCRIT 39.8 % (35.4-49); HEMOGLOBIN 12.5 GM/dL (11.7-16.9); MCH 22.6 pg (25.7-33.7); MCHC 31.3 g/dl (32.0-35.9); MEAN PLT VOLUME 7.5 fl (7.5-11.1); MONO % 6.7 % (3.8-10.2); PLATELET COUNT 238 10^3/uL (134-434); RBC 5.54 M/mm3 (4.00-5.60); RDW 14.7 % (11.9-15.9); WHITE BLOOD COUNT 3.8 K/mm3 (4.0-10.0)
[2022-02-02 15:16] LABS: BLOOD UREA NITROGEN 13.2 mg/dL (7-18); CALCIUM 9.5 mg/dL (8.5-10.1)
[2022-02-02 15:19] LABS: CREATININE 0.8 mg/dL (0.55-1.3)
[2022-02-02] MEDS ORDERED: methaDONE HCL 10 MG TABLET PO ONE (17:00)
[2022-02-02] MEDS ORDERED: methaDONE HCL 10 MG TABLET ONE (17:17)
[2022-02-02] MEDS ORDERED: cloNIDine HCL 0.1 MG TABLET ONE (21:05)
[2022-02-02] MEDS: cloNIDine HCL 0.1 MG TABLET PO PRN (21:06)
[2022-02-03] MEDS ORDERED: cloNIDine HCL 0.1 MG TABLET ONE (06:47)
[2022-02-03] MEDS: cloNIDine HCL 0.1 MG TABLET PO PRN (06:50)
[2022-02-03] MEDS ORDERED: methaDONE HCL 10 MG TABLET ONE (09:22)
[2022-02-03] MEDS ORDERED: ENOXAPARIN NA (PORCINE) 40 MG/0.4 ML DISP.SYRIN SQ ONE (09:23)
[2022-02-03] MEDS: ENOXAPARIN NA (PORCINE) 40 MG/0.4 ML DISP.SYRIN SQ SCH (09:29)
[2022-02-03 12:08] LABS: SARS-CoV-2 NAA Not Detected (Not Detected)
[2022-02-03] MEDS ORDERED: FAMOTIDINE 20 MG/50 ML IVPB 20 MG/50 ML MG IVPB ONE (20:59)
[2022-02-04] MEDS ORDERED: hydrALAZINE HCL 20 MG/ML VIAL IVPUSH ONE (05:53)
[2022-02-04] MEDS ORDERED: LISINOPRIL 10 MG TABLET PO ONE (06:03)
[2022-02-04] MEDS: cloNIDine HCL 0.1 MG TABLET PO PRN ×2 (06:12→12:07)
[2022-02-04] MEDS: ENOXAPARIN NA (PORCINE) 40 MG/0.4 ML DISP.SYRIN SQ SCH (09:35)
[2022-02-04] MEDS ORDERED: methaDONE HCL 10 MG TABLET PO ONE (10:00)
[2022-02-04] MEDS: cloNIDine HCL 0.1 MG TABLET PO SCH ×2 (17:35→21:48)
[2022-02-05] MEDS ORDERED: methaDONE HCL 10 MG TABLET ONE (09:19)
[2022-02-05] MEDS: cloNIDine HCL 0.1 MG TABLET PO SCH ×2 (09:22→21:34)
[2022-02-05] MEDS: ENOXAPARIN NA (PORCINE) 40 MG/0.4 ML DISP.SYRIN SQ SCH (09:23)
[2022-02-05] MEDS: LISINOPRIL 10 MG TABLET PO SCH (09:35)
[2022-02-06] MEDS: cloNIDine HCL 0.1 MG TABLET PO SCH ×2 (09:19→21:47)
[2022-02-06] MEDS: LISINOPRIL 10 MG TABLET PO SCH (09:19)
[2022-02-06] MEDS: ENOXAPARIN NA (PORCINE) 40 MG/0.4 ML DISP.SYRIN SQ SCH (09:19)
[2022-02-06] MEDS ORDERED: methaDONE HCL 10 MG TABLET PO ONE (10:00)
[2022-02-06 20:50] VITALS: BP 139/78; PULSE 69; TEMP 98.5
[2022-02-06 21:16] VITALS: BMI 22.4
[2022-02-07] MEDS: cloNIDine HCL 0.1 MG TABLET PO SCH (09:23)
[2022-02-07] MEDS: ENOXAPARIN NA (PORCINE) 40 MG/0.4 ML DISP.SYRIN SQ SCH (09:23)
[2022-02-07] MEDS: LISINOPRIL 10 MG TABLET PO SCH (09:24)
[2022-02-07] MEDS ORDERED: MULTIVITAMINS (DAILY MVI) TABLET (FP) PO SCH (10:00)
== END 2022-02-07 10:05 | disposition home or self-care (01) ==
LOC: JER 13:12 → JERBED 16:13 → UNDOADMOB 16:13 → INTOOBSV 16:13 → UNDOADMOB 02-03 08:26 → JERBED 02-03 08:26 → J5S 02-03 14:45 → JERBED 02-03 14:45 → OBSVTOIN 02-04 14:24 → INTOOBSV 02-04 14:24 → J5S 02-06 13:21 → JERBED 02-06 13:21
PROVIDERS: ADMIT Family Medicine; ATTEND Nurse Practitioner Family
PROC: 3E033GC Introduction of Other Therapeutic Substance into Peripheral Vein, Percutaneous Approach (ICD-10-PCS; principal; 2022-02-06)
DX: F11.23 Opioid dependence with withdrawal (principal); F10.99 Alcohol use, unspecified with unspecified alcohol-induced disorder; L89.899 Pressure ulcer of other site, unspecified stage; Z29.9 Encounter for prophylactic measures, unspecified; F17.210 Nicotine dependence, cigarettes, uncomplicated
CPT/HCPCS: 36415; 80053; 85025; 93005; 93010; 96365; 99285-25; C9803-CS; G0378; J0735; U0003; U0005